=== PATIENT | female | born 1950 | race Caucasian/White ===

== ENCOUNTER 2017-04-23 12:55 | Inpatient (IN) | payer MEDICARE, OTHER ==
[2017-04-23] VITALS (8 sets, daily range): BP systolic 120–161; BP diastolic 59–78
[~2017-04-23] VITALS: Ht 157.5 cm; Wt 78.9 kg
[~2017-04-23 12:55] MED LIST: ASPI-624 PO; ATOR40TA PO; CLOP75TA PO; CTLP20T PO; LISI1TAB10 PO; LVT.112T PO; MTP100TCR PO; NITR0.4T42 SL; PNT40TEC PO
--- OUTSIDE RECORDS SUMMARY | 2017-04-23 13:00 | XMS REPORT | Continuity of Care Document ---
Author Author [facility] Organization [facility] Address Unknown Phone Unavailable Allergies There is no data. Medications There is no data. Problems There is no data. Procedures There is no data. Results There is no data. Encounters ACCT No. Visit Date/Time Discharge Status Pt. Type Provider Facility Loc./Unit Complaint [id number] 04/18/2013 22:20:00 04/20/2013 14:20:00 DIS Inpatient
[2017-04-23] MEDS ORDERED: LACTATED RINGERS 1,000 ML IV ONE (13:38)
[2017-04-23] MEDS ORDERED: ASPIRIN 81 MG CHEW (CHILDREN'S ASA) PO ONE (13:45)
[2017-04-23 13:46] LABS: BASOPHILS # (AUTO) 0.1 10^3/uL (0.0-0.1); BASOPHILS % (AUTO) 1 % (0-10); EOSINOPHILS # (AUTO) 0.2 10^3/uL (0.0-0.3); EOSINOPHILS % (AUTO) 2 % (0-10); HEMATOCRIT 23 % (35-52); LYMPHOCYTES # (AUTO) 3.7 X 10^3 (1.0-4.0); LYMPHOCYTES % (AUTO) 37 % (12-44); MEAN CORPUSCULAR HEMOGLOBIN 20 PG (25-34); MEAN CORPUSCULAR HGB CONC 28 G/DL (32-36); MEAN CORPUSCULAR VOLUME 71 FL (80-99); MEAN PLATELET VOLUME 9.6 FL (7.4-10.4); MONOCYTES % (AUTO) 10 % (0-12); NEUTROPHILS # (AUTO) 5.2 X 10^3 (1.8-7.8); NEUTROPHILS % (AUTO) 52 % (42-75); PLATELET COUNT 441 10^3/uL (130-400); RED BLOOD COUNT 3.27 10^6/uL (4.35-5.85); RED CELL DISTRIBUTION WIDTH 17.7 % (10.0-14.5); WHITE BLOOD COUNT 10.1 10^3/uL (4.3-11.0)
--- NOTE | 2017-04-23 13:46 | ED Chest Pain ---
General Chief Complaint: Chest Pain Stated Complaint: DIZZY SPELLS,HEART FLUTTERING X 3 DAYS Nursing Triage Note: PT CO OF CHEST PAIN AND DIZZINESS X3 DAYS, STATES FEELS LIKE HEART FLUTTERS Nursing Sepsis Screen: No Definite Risk Source: patient, spouse Exam Limitations: no limitations History of Present Illness Date Seen by Provider: Apr 23, 2017 Time Seen by Provider: 13:25 Initial Comments Patient presents to the ER by private conveyance with a chief complaint that the past 3 days she's had progressively worsening chest pain in her left chest radiates to her left shoulder as well as dizziness when getting up from sitting to a standing position. She feels like she is going to pass out. She denies a history of Mnire's. She does have a history of coronary artery disease one stent and had a heart catheter 3 years ago showing 15% occlusion in one vessel done by Dr. Cross in [place], [place]. She also has a stress test 3 months ago. She says her chest pain is very mild. She takes blood pressure medicine, valsartan which she did take today. She does not smoke have diabetes, however he does have hypercholesterolemia, hypothyroidism. 2 weeks ago she was diagnosed with bronchitis put on a steroid shot as well as antibiotics which she completed and she feels like it got much better she is no longer short of breath. She is still coughing with some occasional mucus production. She's had no objective fever only measuring as high as 99.5 but she has had chills. Allergies and Home Medications Allergies Coded Allergies: No Known Drug Allergies (Unverified , 04/18/13) Home Medications Aspirin 81 Mg Tablet, 81 MG PO DAILY, (Reported) Atorvastatin Calcium 40 Mg Tablet, 40 MG PO DAILY, (Reported) Citalopram Hydrobromide 20 Mg Tablet, 20 MG PO HS, (Reported) Clopidogrel Bisulfate 75 Mg Tablet, 75 MG PO DAILY, (Reported) Levothyroxine Sodium 112 Mcg Tablet, 112 MCG PO DAILY, (Reported) Nitroglycerin 0.4 Mg Tab.subl, 0.4 MG SL PRN, (Reported) Pantoprazole Sodium 40 Mg Tablet.dr, 40 MG PO DAILY, (Reported) Review of Systems Constitutional: No chills, No diaphoresis EENTM: No Blurred Vision, No Double Vision Respiratory: Cough, Denies Shortness of Air, Denies Wheezing Cardiovascular: See HPI, Chest Pain, Denies Edema, Lightheadedness, Denies Palpitations, Denies Syncope Gastrointestinal: Denies Abdominal Pain, Denies Constipated, Denies Diarrhea, Denies Nausea Genitourinary: Denies Burning, Denies Discharge Musculoskeletal: No back pain, No joint pain Skin: No pruritus, No rash Psychiatric/Neurological: Denies Headache, Denies Numbness, Denies Paresthesia Past Knvsald-Stoybs-Xhcsro Hx Patient Social History Alcohol Use: Rarely Uses Recreational Drug Use: No Smoking Status: Never a Smoker Recent Foreign Travel: No Contact w/Someone Who Travel: No Recent Infectious Disease Expo: No Immunizations Up To Date Tetanus Booster (TDap): Less than 5yrs Date of Influenza Vaccine: Nov 26, 2012 Reproductive System Hx Reproductive Disorders: No Sexually Transmitted Disease: No Endocrine Endocrine Disorders: Hypothyroidsim Physical Exam Vital Signs Vital Signs - First Documented 04/23/17 13:18 Temp 97.9 Pulse 103 Resp 18 B/P (MAP) 145/75 (98) Pulse Ox 98 Capillary Refill : Less Than 3 Seconds General Appearance: No Apparent Distress, WD/WN HEENT: PERRL/EOMI, TMs Normal, Normal ENT Inspection, Pharynx Normal Neck: Full Range of Motion, Normal Inspection, Non Tender, Supple Respiratory: Chest Non Tender, Lungs Clear, Normal Breath Sounds, No Accessory Muscle Use, No Respiratory Distress Cardiovascular: Regular Rate, Rhythm, No Edema, Normal Peripheral Pulses, Diastolic Murmur Gastrointestinal: Normal Bowel Sounds, No Organomegaly, Non Tender, Soft Rectal: Normal Exam, Normal Rectal Tone, Heme Negative Stool Genital/Rectal: Heme Negative Stool Extremity: Normal Capillary Refill, Normal Inspection, Non Tender, No Calf Tenderness, No Pedal Edema Neurologic/Psychiatric: Alert, Oriented x3, No Motor/Sensory Deficits Skin: Normal Color, Warm/Dry Progress/Results/Core Measures Results/Orders Lab Results Laboratory Tests Test 04/23/17 13:14 Range/Units White Blood Count 10.1 4.3-11.0 10^3/uL Red Blood Count 3.27 L 4.35-5.85 10^6/uL Hemoglobin 6.6 *L 11.5-16.0 G/DL Hematocrit 23 L 35-52 % Mean Corpuscular Volume 71 L 80-99 FL Mean Corpuscular Hemoglobin 20 L 25-34 PG Mean Corpuscular Hemoglobin Concent 28 L 32-36 G/DL Red Cell Distribution Width 17.7 H 10.0-14.5 % Platelet Count 441 H 130-400 10^3/uL Mean Platelet Volume 9.6 7.4-10.4 FL Neutrophils (%) (Auto) 52 42-75 % Lymphocytes (%) (Auto) 37 12-44 % Monocytes (%) (Auto) 10 0-12 % Eosinophils (%) (Auto) 2 0-10 % Basophils (%) (Auto) 1 0-10 % Neutrophils # (Auto) 5.2 1.8-7.8 X 10^3 Lymphocytes # (Auto) 3.7 1.0-4.0 X 10^3 Monocytes # (Auto) 1.0 0.0-1.0 X 10^3 Eosinophils # (Auto) 0.2 0.0-0.3 10^3/uL Basophils # (Auto) 0.1 0.0-0.1 10^3/uL Prothrombin Time 13.5 12.2-14.7 SEC INR Comment 1.0 0.8-1.4 Activated Partial Thromboplast Time 25 24-35 SEC Sodium Level 137 135-145 MMOL/L Potassium Level 4.1 3.6-5.0 MMOL/L Chloride Level 106 98-107 MMOL/L Carbon Dioxide Level 22 21-32 MMOL/L Anion Gap 9 5-14 MMOL/L Blood Urea Nitrogen 17 7-18 MG/DL Creatinine 0.92 0.60-1.30 MG/DL Estimat Glomerular Filtration Rate > 60 BUN/Creatinine Ratio 18 Glucose Level 102 70-105 MG/DL Calcium Level 9.0 8.5-10.1 MG/DL Magnesium Level 1.7 L 1.8-2.4 MG/DL Total Bilirubin 0.4 0.1-1.0 MG/DL Aspartate Amino Transf (AST/SGOT) 16 5-34 U/L Alanine Aminotransferase (ALT/SGPT) 12 0-55 U/L Alkaline Phosphatase 65 40-136 U/L Myoglobin 54.0 10.0-92.0 NG/ML Troponin I < 0.30 <0.30 NG/ML B-Type Natriuretic Peptide < 10.0 <100.0 PG/ML Total Protein 7.9 6.4-8.2 GM/DL Albumin 4.0 3.2-4.5 GM/DL My Orders Orders - RAVINDER OSMAN Saline Lock/Iv-Start (04/23/17 13:38) Lactated Ringers (Lr 1000 Ml Iv Solution (04/23/17 13:38) Cbc With Automated Diff (04/23/17 13:38) Magnesium (04/23/17 13:38) Ekg Tracing (04/23/17 13:38) Cardiac Profile 1 (04/23/17 13:38) Comprehensive Metabolic Panel (04/23/17 13:38) Myoglobin Serum (04/23/17 13:38) Protime With Inr (04/23/17 13:38) Partial Thromboplastin Time (04/23/17 13:38) O2 (04/23/17 13:38) Monitor-Rhythm Ecg Trace Only (04/23/17 13:38) Lipid Panel (04/24/17 06:00) Aspirin Chewable Tablet (Baby Aspirin Ch (04/23/17 13:45) Saline Lock/Iv-Start (04/23/17 13:38) BNP (04/23/17 13:38) Chest Pa/Lat (2 View) (04/23/17 13:38) Orthostatic Vital Signs (Adult (04/23/17 13:40) Vital Signs: Special (04/23/17 14:47) Consent-Obtain Consent For (04/23/17 14:47) Monitor S/S Transfusion Reacti (04/23/17 14:47) Ns Iv 500 Ml (Sodium Chloride 0.9%) (04/23/17 14:47) Type And Screen (04/23/17 14:47) Red Cells Leukocytes Reduced (04/23/17 14:47) Medications Given in ED Current Medications Medications Dose Ordered Sig/Sarah Route Start Time Stop Time Status Last Admin Dose Admin Aspirin 324 mg ONCE ONCE PO 04/23/17 13:45 04/23/17 13:46 DC 04/23/17 14:04 324 MG Lactated Ringer's 1,000 ml @ 0 mls/hr Q0M ONCE IV 04/23/17 13:38 04/23/17 13:41 DC 04/23/17 14:04 1,000 MLS/HR Vital Signs/I&O Vital Sign - Last 12Hours 04/23/17 04/23/17 04/23/17 13:18 14:02 14:03 Temp 97.9 Pulse 103 87 87 95 96 Resp 18 B/P (MAP) 145/75 (98) 122/67 (85) 122/67 (85) 124/78 (93) 125/69 (87) Pulse Ox 98 Blood Pressure Mean: 98 Progress Note : Time: 13:45 Progress Note Chest pain secondary to recent bronchitis/pneumonia versus cardiogenic. We'll give her some aspirin, nitroglycerin blood pressure systolic 116 and her pain is very mild. Initial EKG does not show changes. Orthostatic vitals lying sitting standing do not change and the heart rate does not change more than 10 bpm. ECG Initial ECG Impression Date: Apr 23, 2017 Initial ECG Impression Time: 13:09 Initial ECG Rate: 93 Initial ECG Rhythm: Normal Sinus Initial ECG Intervals: Normal Initial ECG Impression: Normal Initial ECG Comparisson: No Previous ECG Available Comment No ST segment elevation or depression. Diagnostic Imaging Diagonstic Imaging: Xray Plain Films/CT/US/NM/MRI: chest (2v) Comments NAME: TYRELL VENEGAS [facility] REC#: [id number] PHYSICIAN: RAVINDER OSMAN MD CC: ALIZE BOLIVAR MD; RAVINDER OSMAN Page 1 of 1 RADIOLOGY REPORT [place] [place], [place] CC: ALIZE BOLIVAR MD; RAVINDER OSMAN Page 1 of 1 RADIOLOGY REPORT NAME: RUBITYRELL L [facility] REC#: [id number] PT STATUS: REG ER : 1950 PHYSICIAN: RAVINDER OSMAN MD ADMIT DATE: 04/23/17/ER Signed Date of Exam: 04/23/17 CHEST PA/LAT (2 VIEW) INDICATION: Dizziness and chest heaviness. Time of exam 2:31 PM Correlation is made to prior study from 04/18/2013. The heart size is normal. Moderate sized hiatal hernia is noted. No parenchymal infiltrates are seen. No effusion or pneumothorax is identified. IMPRESSION: Hiatal hernia. No acute cardiopulmonary process is detected. Dictated by: Dictated on workstation # [id number] Dict: 04/23/17 1415 Trans: 04/23/17 1419 Interpreted by: ALIZE BOLIVAR MD Electronically signed by: ALIZE BOLIVAR MD 04/23/17 1419 Reviewed: Reviewed by Me Departure Communication (Admissions) Time/Spoke to Admitting Phy: 15:[address] Gasca; discussed case lab imaging findings and she would prefer to have this one unit for now. Discussed the negative fecal occult blood test. Impression Impression: Primary Impression: Chest pain Disposition: ADMITTED INPATIENT Condition: Stable Admissions Decision to Admit Reason: Admit from ER (General) Decision to Admit/Date: Apr 23, 2017 Time/Decision to Admit Time: 13:46 Departure-Patient Inst. Referrals: ANAID MCNULTY MD (PCP/Family) Primary Care Physician Copy Copies To 1: ANAID MCNULTY MD, TITUS J Apr 23, 2017 13:46
[2017-04-23 13:47] LABS: HEMOGLOBIN 6.6 G/DL (11.5-16.0)
[2017-04-23 13:50] LABS: PROTHROMBIN TIME PATIENT 13.5 SEC (12.2-14.7)
[2017-04-23 14:05] LABS: ALANINE AMINOTRANSFERASE 12 U/L (0-55); ALKALINE PHOSPHATASE 65 U/L (40-136); BILIRUBIN,TOTAL 0.4 MG/DL (0.1-1.0); BUN/CREATININE RATIO 18; CARBON DIOXIDE 22 MMOL/L (21-32); CHLORIDE 106 MMOL/L (98-107); CREATININE SERUM 0.92 MG/DL (0.60-1.30); GFR ESTIMATED > 60; GLUCOSE 102 MG/DL (70-105); MAGNESIUM 1.7 MG/DL (1.8-2.4); POTASSIUM 4.1 MMOL/L (3.6-5.0); SODIUM 137 MMOL/L (135-145); TOTAL PROTEIN 7.9 GM/DL (6.4-8.2)
--- NOTE | 2017-04-23 14:19 | Diagnostic Imaging Report ---
INDICATION: Dizziness and chest heaviness. Time of exam 2:31 PM Correlation is made to prior study from 04/18/2013. The heart size is normal. Moderate sized hiatal hernia is noted. No parenchymal infiltrates are seen. No effusion or pneumothorax is identified. IMPRESSION: Hiatal hernia. No acute cardiopulmonary process is detected. Dictated by: Dictated on workstation # [id number]
[2017-04-23] MEDS ORDERED: NS IV 500 ML 500 ML IV SCH (14:47)
--- OUTSIDE RECORDS SUMMARY | 2017-04-23 15:34 | XMS REPORT | Continuity of Care Document ---
Author Author [facility] Organization [facility] Address Unknown Phone Unavailable Allergies There is no data. Medications There is no data. Problems There is no data. Procedures There is no data. Results Test Result Range Complete blood count (CBC) with automated white blood cell (WBC) differential - 04/23/17 13:14 Blood leukocytes automated count (number/volume) 10.1 10*3/uL 4.3-11.0 Blood erythrocytes automated count (number/volume) 3.27 10*6/uL 4.35-5.85 Venous blood hemoglobin measurement (mass/volume) 6.6 g/dL 11.5-16.0 Blood hematocrit (volume fraction) 23 % 35-52 Automated erythrocyte mean corpuscular volume 71 [foz_us] 80-99 Automated erythrocyte mean corpuscular hemoglobin (mass per erythrocyte) 20 pg 25-34 Automated erythrocyte mean corpuscular hemoglobin concentration measurement ( mass/volume) 28 g/dL 32-36 Automated erythrocyte distribution width ratio 17.7 % 10.0-14.5 Automated blood platelet count (count/volume) 441 10*3/uL 130-400 Automated blood platelet mean volume measurement 9.6 [foz_us] 7.4-10.4 Automated blood neutrophils/100 leukocytes 52 % 42-75 Automated blood lymphocytes/100 leukocytes 37 % 12-44 Blood monocytes/100 leukocytes 10 % 0-12 Automated blood eosinophils/100 leukocytes 2 % 0-10 Automated blood basophils/100 leukocytes 1 % 0-10 Blood neutrophils automated count (number/volume) 5.2 10*3 1.8-7.8 Blood lymphocytes automated count (number/volume) 3.7 10*3 1.0-4.0 Blood monocytes automated count (number/volume) 1.0 10*3 0.0-1.0 Automated eosinophil count 0.2 10*3/uL 0.0-0.3 Automated blood basophil count (count/volume) 0.1 10*3/uL 0.0-0.1 PT panel in platelet poor plasma by coagulation assay - 04/23/17 13:14 Prothrombin time (PT) in platelet poor plasma by coagulation assay 13.5 s 12.2-14.7 INR in platelet poor plasma or blood by coagulation assay 1.0 0.8-1.4 Activated partial thromboplastin time (aPTT) in platelet poor plasma bycoagulation assay - 04/23/17 13:14 Activated partial thromboplastin time (aPTT) in platelet poor plasma bycoagulation assay 25 s 24-35 Comprehensive metabolic panel - 04/23/17 13:14 Serum or plasma sodium measurement (moles/volume) 137 mmol/L 135-145 Serum or plasma potassium measurement (moles/volume) 4.1 mmol/L 3.6-5.0 Serum or plasma chloride measurement (moles/volume) 106 mmol/L 98-107 Carbon dioxide 22 mmol/L 21-32 Serum or plasma anion gap determination (moles/volume) 9 mmol/L 5-14 Serum or plasma urea nitrogen measurement (mass/volume) 17 mg/dL 7-18 Serum or plasma creatinine measurement (mass/volume) 0.92 mg/dL 0.60-1.30 Serum or plasma urea nitrogen/creatinine mass ratio 18 NRG Serum or plasma creatinine measurement with calculation of estimated glomerular filtration rate > NRG Serum or plasma glucose measurement (mass/volume) 102 mg/dL 70-105 Serum or plasma calcium measurement (mass/volume) 9.0 mg/dL 8.5-10.1 Serum or plasma total bilirubin measurement (mass/volume) 0.4 mg/dL 0.1-1.0 Serum or plasma alkaline phosphatase measurement (enzymatic activity/volume) 65 U/L 40-136 Serum or plasma aspartate aminotransferase measurement (enzymatic activity/ volume) 16 U/L 5-34 Serum or plasma alanine aminotransferase measurement (enzymatic activity/volume ) 12 U/L 0-55 Serum or plasma protein measurement (mass/volume) 7.9 g/dL 6.4-8.2 Serum or plasma albumin measurement (mass/volume) 4.0 g/dL 3.2-4.5 Magnesium - 04/23/17 13:14 Magnesium 1.7 mg/dL 1.8-2.4 Serum or plasma troponin i.cardiac measurement (mass/volume) - 04/23/17 13:14 Serum or plasma troponin i.cardiac measurement (mass/volume) < ng/ mL <0.30 Myoglobin, serum - 04/23/17 13:14 Myoglobin, serum 54.0 ng/mL 10.0-92.0 Serum or plasma lithium measurement (moles/volume) - 04/23/17 13:14 BNP level < pg/mL <100.0 Encounters ACCT No. Visit Date/Time Discharge Status Pt. Type Provider Facility Loc./Unit Complaint [id number] 04/18/2013 22:20:00 04/20/2013 14:20:00 DIS Inpatient [id number] 04/23/2017 13:48:00 Document Registration
[2017-04-23] MEDS ORDERED: ANTACID SUSP 30 ML UDC (MYLANTA) PO PRN (16:15)
[2017-04-23] MEDS ORDERED: ONDANSETRON 4 MG/2 ML (SDV) Z0FRAN IV PRN (16:15)
[2017-04-23] MEDS ORDERED: ACETAMINOPHEN 325 MG TABLET/CAPLET (TYLENOL) PO PRN (16:15)
[2017-04-23] MEDS: NS IV 1000 ML 1,000 ML IV SCH (16:15)
[2017-04-23] MEDS ORDERED: MELATONIN 3 MG TABLET PO PRN (16:15)
[2017-04-23] MEDS ORDERED: MILK OF MAGNESIA 400 MG/5 ML 30 ML UDC PO PRN (16:15)
--- NOTE | 2017-04-23 16:18 | History & Physical-Hospitalist ---
HPI History of Present Illness: HPI/Chief Complaint Pt is a 66yoCF with a PMH of CAD s/p stenting and HTN who presented to the ER with CC of chest pain and SANCHEZ. She reports her symptoms have been going on for 2 months. She has been getting progressively more weak and SOB. 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 This continued to worsen today prompting her to seek evaluation in the ER where she was found to be anemic with a hemoglobin of 6.6. She has a history of anemia and has been worked up in the past with colonoscopy and EGD but those are years ago. She has a history of a hysterectomy due to DUB a few years ago. She denies any blood stools or vomit, hematuria, and vaginal bleeding. She denies chest pain currently. Source: patient, family Exam Limitations: no limitations Date Seen 04/23/17 Time Seen by Provider: 15:45 Attending Physician Sobia Gasca MD PCP Chavo Browning MD Referring Physician Date of Admission Apr 23, 2017 at 15:31 Home Medications & Allergies Home Medications Reviewed patient Home Medication Reconciliation Form Allergies Allergies Coded Allergies No Known Drug Allergies (Unverified04/18/13) Past Cjcallz-Ycsnrl-Cammsk Hx Patient Social History Marrital Status: Employed/Student: part-time employed Alcohol Use: Rarely Uses Recreational Drug Use: No Smoking Status: Never a Smoker Recent Foreign Travel: No Contact w/other who traveled: No Recent Hopitalizations: No Recent Infectious Disease Expo: No Immunizations Up To Date Tetanus Booster (TDap): Less than 5yrs Date of Influenza Vaccine: Nov 26, 2012 Surgeries Yes (BACK, HEART CATHX2-ANGIOPLASTY&STENT) Respiratory No Cardiovascular Yes (STENTS/ANGIOPLASTYX2) Coronary Artery Disease, Hypertension Neurological No Reproductive System Hx Reproductive Disorders: No Sexually Transmitted Disease: No Gastrointestinal No Musculoskeletal No Endocrine History of Endocrine Disorders: Yes Endocrine Disorders: Hypothyroidsim Cancer No Psychosocial History of Psychiatric Problem: No Integumentary History of Skin or Integumenta: No Blood Transfusions Hx of Blood Transfusion yes Adverse Reaction to a Blood Tr: No Family Medical History Significant Family History: Heart Disease, CAD Over 55 Years Old Review of Systems Constitutional: No chills, No fever, weakness EENTM: No blurred vision, No double vision, No nose congestion, No throat pain Respiratory: No cough, dyspnea on exertion, short of breath Cardiovascular: chest pain, No edema, No palpitations, No syncope Gastrointestinal: No abdominal pain, No constipation, No diarrhea, No nausea, No vomiting Genitourinary: No dysuria, No frequency Musculoskeletal: No joint pain, No muscle pain Skin: No lesions, No rash Psychiatric/Neurological: Denies Anxiety, Denies Depressed, Denies Headache, Denies Numbness, Denies Tingling Physical Exam Physical Exam Vital Signs Vital Signs - First Documented 04/23/17 13:18 Temp 97.9 Pulse 103 Resp 18 B/P (MAP) 145/75 (98) Pulse Ox 98 O2 Delivery Room Air Capillary Refill : Less Than 3 Seconds General Appearance: No Apparent Distress, WD/WN HEENT: PERRL/EOMI, Moist Mucous Membranes Neck: Non Tender, Supple Respiratory: Lungs Clear, No Respiratory Distress Cardiovascular: Regular Rate, Rhythm, No Murmur Gastrointestinal: Normal Bowel Sounds, Non Tender, Soft Extremity: Normal Capillary Refill, No Calf Tenderness Neurologic/Psychiatric: Alert, Oriented x3, Normal Mood/Affect Skin: Warm/Dry, No Mottled, Pallor Results Results/Procedures Lab Laboratory Tests 04/23/17 13:14 Assessment/Plan Admission Diagnosis Symptomatic anemia Admission Status: Inpatient Order (span 2 midnights) Reason for Inpatient Admission: symptomatic anemia of unknown etiology with chest pain Diagnosis/Problems Diagnosis/Problems (1) Symptomatic anemia Status: Acute Assessment & Plan: T&S- will likely need T&C if needs any further transfusions Transfuse 1 unit only, repeat in H&H in AM only No obvious source of anemia Will consult Heme, appreciate recs Will consulte Surgery, appreciate recs Iron studies ordered Will likely need Infed during admission (2) Essential (primary) hypertension Status: Chronic Assessment & Plan: Well controlled currently (3) CAD (coronary artery disease) Status: Chronic Assessment & Plan: Having chest pain likely due to anemia Cardiology consulted appreciate recs ASA given in ER Monitor on tele Qualifiers: Qualified Codes: I25.10 - Atherosclerotic heart disease of [place] coronary artery without angina pectoris (4) Hypomagnesemia Assessment & Plan: Will replace (5) Prophylactic measure Assessment & Plan: SCDs due to anemia CLD for prep for EGD/colonoscopy NS at 100ml/hr Clinical Quality Measures AMI/AHF: ASA po Prior to arrival: SOBIA Camara MD Apr 23, 2017 16:18
[2017-04-23] MEDS ORDERED: MAGNESIUM CITRATE 300 ML BTL PO NR (16:45)
[2017-04-23] MEDS ORDERED: INFLUENZA TRIvalent 2017-2018 0.5 ML/45 MCG SYR IM ONE (17:15)
--- NOTE | 2017-04-23 17:38 | Consultation-Cardiology ---
HPI-Cardiology Cardiology Consultation: Date of Consultation 04/23/17 Time Seen by Provider: 17:20 Date of Admission Attending Physician Gilda Gasca MD Admitting Physician Chavo Browning MD Consulting Physician KARISSA GRULLON MD, MA, FACP, FACC, FSCAI, CCDS HPI: Chief Complaint: Shortness of breath HPI 66 yo woman with 2 month of slowly progressive shortness of breath. Also mild L parasternal discomfort, mild, pressure-like, non-radiating, not associated with other symptoms, lasting several hours and recurring several times a week, with onset about 2 months ago. No palp or syncope or shortness of breath or ankle swelling or syncope Review of Systems-Cardiology Review of Systems Constitutional: malaise, tiredness Eyes: No vision change Ears/Nose/Throat: No ear discharge, No nasal drainage, No recent hearing loss Respiratory: As described under HPI Cardiovascular: As described under HPI Gastrointestinal: No constipation, No diarrhea, No vomiting Genitourinary: No dysuria, No hematuria, No urine frequency changes Musculoskeletal: back pain (chronic) Skin: No rash on exposed areas, No ulcerations on exposed areas Psychiatric/Neurological: No depression, No seizure, No focal weakness, No syncope Hematologic: bleeding abnormalities VDH-Twchgw-Evvglh Hx Patient Social History Marrital Status: Employed/Student: part-time employed Alcohol Use: Rarely Uses Recreational Drug Use: No Smoking Status: Never a Smoker Recent Foreign Travel: No Recent Infectious Disease Expo: No Hospitalization with Isolation: Denies Physical Abuse Screen: No Sexual Abuse: No Immunizations Up To Date Tetanus Booster (TDap): Less than 5yrs Date of Influenza Vaccine: Nov 26, 2012 Past Medical History PMH As described under Assessment. Family Medical History Family Medical History: No fam h/o or early CAD or SCD Family History: Allergies and Home Medications Allergies Coded Allergies: No Known Drug Allergies (Unverified , 04/23/17) Home Medications Aspirin 81 Mg Tablet, 81 MG PO DAILY, (Reported) Atorvastatin Calcium 40 Mg Tablet, 40 MG PO DAILY, (Reported) Citalopram Hydrobromide 20 Mg Tablet, 20 MG PO HS, (Reported) Levothyroxine Sodium 112 Mcg Tablet, 112 MCG PO DAILY, (Reported) Nitroglycerin 0.4 Mg Tab.subl, 0.4 MG SL PRN, (Reported) Pantoprazole Sodium 40 Mg Tablet.dr, 40 MG PO DAILY, (Reported) Physical Exam-Cardiology Physical Exam Vital Signs/I&O Vital Sign - Last 12Hours 04/23/17 04/23/17 04/23/17 04/23/17 13:18 13:18 14:02 14:03 Temp 97.9 Pulse 103 87 87 95 96 Resp 18 B/P (MAP) 145/75 (98) 122/67 (85) 122/67 (85) 124/78 (93) 125/69 (87) Pulse Ox 98 O2 Delivery Room Air 04/23/17 04/23/17 04/23/17 04/23/17 15:33 15:48 16:59 17:20 Temp 97.2 97.2 97.3 Pulse 88 95 95 81 Resp 20 20 20 20 B/P (MAP) 140/78 161/72 (101) 161/72 122/59 Pulse Ox 99 100 100 O2 Delivery Room Air Room Air Capillary Refill : Less Than 3 Seconds Constitutional: AAO x 3, well-developed, well-nourished HEENT: EOMI, hearing is well preserved, No xanthelasmas are seen Neck: No carotid bruit, carotid pulses are 2 + bilaterally Respiratory: lungs clear to percussion, lungs clear to auscultation Cardiovascular: regular rate-rhythm, S1 and S2, systolic murmur (faint URBAN at card base) Gastrointestinal: No tender, No soft, No guarding, No rebound, audible bowel sounds Extremities: No clubbing, No cyanosis, No significant edema Neurologic/Psychiatric: oriented x 3, grossly intact, power is 5/5 both on sides Skin: No rash on exposed areas, No ulcerations on exposed areas Data Review Labs Laboratory Tests 04/23/17 13:14: White Blood Count 10.1, Red Blood Count 3.27L, Hemoglobin 6.6*L, Hematocrit 23L , Mean Corpuscular Volume 71L, Mean Corpuscular Hemoglobin 20L, Mean Corpuscular Hemoglobin Concent 28L, Red Cell Distribution Width 17.7H, Platelet Count 441H, Mean Platelet Volume 9.6, Neutrophils (%) (Auto) 52, Lymphocytes (% ) (Auto) 37, Monocytes (%) (Auto) 10, Eosinophils (%) (Auto) 2, Basophils (%) ( Auto) 1, Neutrophils # (Auto) 5.2, Lymphocytes # (Auto) 3.7, Monocytes # (Auto) 1.0, Eosinophils # (Auto) 0.2, Basophils # (Auto) 0.1, Prothrombin Time 13.5, INR Comment 1.0, Activated Partial Thromboplast Time 25, Sodium Level 137, Potassium Level 4.1, Chloride Level 106, Carbon Dioxide Level 22, Anion Gap 9, Blood Urea Nitrogen 17, Creatinine 0.92, Estimat Glomerular Filtration Rate > 60 , BUN/Creatinine Ratio 18, Glucose Level 102, Calcium Level 9.0, Magnesium Level 1.7L, Total Bilirubin 0.4, Aspartate Amino Transf (AST/SGOT) 16, Alanine Aminotransferase (ALT/SGPT) 12, Alkaline Phosphatase 65, Myoglobin 54.0, Troponin I < 0.30, B-Type Natriuretic Peptide < 10.0, Total Protein 7.9, Albumin 4.0 Laboratory Tests 04/23/17 13:14 ECG Impression ECG Comment ECG on 04/23/17: NSR, WNL A/P-Cardiology Assessment/Admission Diagnosis Profound, symptomatic anemia of undetermined etiology Shortness of breath likely related to marked anemia Epigastric/chest discomfort w/o evidence of ACS, thus far Hospitalization with medication-related hypotension and hypotension-related ARF in 2013 H/o LCX stent (Promus 2.5x8) and OM stent (Promus 2.5x12) by Dr Rajan in [place], [place] in 2012. Last card cath by Dr Kowalski in [place], [place] in 2014. Pt states last cath did not show any significant obstructive CAD Admission Status: Inpatient Order (span 2 midnights) Reason for Inpatient Admission: symptomatic anemia of unknown etiology with chest pain Discussion and Recomendations * Blood transfusion to correct anemia is likely to improve symptoms * Hold antiplatelet agents since GI bleed is a concern * Resume antiplatelet agents when bleeding excluded/treated * Monitor labs Clinical Quality Measures AMI/AHF: ASA po Prior to arrival: No DVT/VTE Risk/Contraindication: Risk Factor Score Per Nursin RFS Level Per Nursing on Admit: 3=High KARISSA GRULLON MD FACP FAC CCDS Apr 23, 2017 17:38
[2017-04-23] MEDS ORDERED: MAGNESIUM 1 GM/100 ML IVPB 200 ML IV ONE (20:13)
[2017-04-23] MEDS: MAGNESIUM 1 GM/100 ML IVPB 100 ML IV SCH ×2 (20:36→22:39)
[2017-04-24] VITALS (9 sets, daily range): BP systolic 91–134; BP diastolic 51–68
[2017-04-24] MEDS: NS IV 1000 ML 1,000 ML IV SCH ×3 (03:00→22:16)
[2017-04-24 06:52] LABS: BASOPHILS % (AUTO) 1 % (0-10); EOSINOPHILS # (AUTO) 0.3 10^3/uL (0.0-0.3); EOSINOPHILS % (AUTO) 4 % (0-10); HEMATOCRIT 24 % (35-52); LYMPHOCYTES # (AUTO) 2.6 X 10^3 (1.0-4.0); LYMPHOCYTES % (AUTO) 37 % (12-44); MEAN CORPUSCULAR HEMOGLOBIN 21 PG (25-34); MEAN CORPUSCULAR HGB CONC 29 G/DL (32-36); MEAN CORPUSCULAR VOLUME 72 FL (80-99); MEAN PLATELET VOLUME 9.3 FL (7.4-10.4); MONOCYTES # (AUTO) 0.8 X 10^3 (0.0-1.0); MONOCYTES % (AUTO) 11 % (0-12); NEUTROPHILS # (AUTO) 3.3 X 10^3 (1.8-7.8); NEUTROPHILS % (AUTO) 46 % (42-75); PLATELET COUNT 364 10^3/uL (130-400); RED BLOOD COUNT 3.26 10^6/uL (4.35-5.85); RED CELL DISTRIBUTION WIDTH 17.9 % (10.0-14.5); WHITE BLOOD COUNT 7.1 10^3/uL (4.3-11.0)
[2017-04-24 06:53] LABS: HEMOGLOBIN 6.8 G/DL (11.5-16.0)
[2017-04-24 07:17] LABS: BUN/CREATININE RATIO 18; CALCIUM 8.2 MG/DL (8.5-10.1); CARBON DIOXIDE 25 MMOL/L (21-32); CHLORIDE 110 MMOL/L (98-107); CHOLESTEROL 139 MG/DL (< 200); CREATININE SERUM 0.73 MG/DL (0.60-1.30); GFR ESTIMATED > 60; GLUCOSE 84 MG/DL (70-105); HDL CHOLESTEROL 40 MG/DL (40-60); SODIUM 141 MMOL/L (135-145); TRIGLYCERIDES 90 MG/DL (<150); VLDL CHOLESTEROL 18 MG/DL (5-40)
--- NOTE | 2017-04-24 08:56 | Progress Note-Cardiology ---
Cardiology SOAP Progress Note Subjective: Sitting up in bed. Continues to c/o some chest discomfort, but feels it is better than before. C/O continued SANCHEZ. No c/o palpitations, syncope or near syncope. Objective: I&O/Vital Signs Vital Sign - Last 12Hours 04/24/17 04/24/17 04/24/17 04/24/17 08:00 12:00 13:34 13:50 Temp 96.7 97.8 97.5 97.3 Pulse 81 93 88 82 Resp 20 16 18 18 B/P (MAP) 134/62 (86) 124/68 (86) 127/61 123/58 Pulse Ox 98 100 98 96 O2 Delivery Room Air Room Air Room Air 04/24/17 04/24/17 15:50 16:25 Temp 97.7 98.1 Pulse 80 84 Resp 16 B/P (MAP) 127/60 (82) 120/66 Pulse Ox 98 O2 Delivery Room Air Intake and Output 04/24/17 00:00 Intake Total 1600 ml Output Total 550 ml Balance 1050 ml Weight (Pounds): 174 Weight (Ounces): 0.0 Weight (Calculated Kilograms): 78.572172 Constitutional: AAO x 3, well-developed, well-nourished Respiratory: lungs clear to percussion, lungs clear to auscultation Cardiovascular: regular rate-rhythm, S1 and S2, systolic murmur (faint URBAN at card base) Gastrointestional: No tender, No soft, No guarding, No rebound, audible bowel sounds Extremities: No clubbing, No cyanosis, No significant edema Neurologic/Psychiatric: oriented x 3, grossly intact, power is 5/5 both on sides Skin: No rash on exposed areas, No ulcerations on exposed areas Results/Procedures: Labs Laboratory Tests 04/24/17 05:55: White Blood Count 7.1, Red Blood Count 3.26L, Hemoglobin 6.8*L, Hematocrit 24L, Mean Corpuscular Volume 72L, Mean Corpuscular Hemoglobin 21L, Mean Corpuscular Hemoglobin Concent 29L, Red Cell Distribution Width 17.9H, Platelet Count 364, Mean Platelet Volume 9.3, Neutrophils (%) (Auto) 46, Lymphocytes (%) (Auto) 37, Monocytes (%) (Auto) 11, Eosinophils (%) (Auto) 4, Basophils (%) (Auto) 1, Neutrophils # (Auto) 3.3, Lymphocytes # (Auto) 2.6, Monocytes # (Auto) 0.8, Eosinophils # (Auto) 0.3, Basophils # (Auto) 0.0, Sodium Level 141, Potassium Level 4.0, Chloride Level 110H, Carbon Dioxide Level 25, Anion Gap 6, Blood Urea Nitrogen 13, Creatinine 0.73, Estimat Glomerular Filtration Rate > 60, BUN/ Creatinine Ratio 18, Glucose Level 84, Calcium Level 8.2L, Triglycerides Level 90, Cholesterol Level 139, LDL Cholesterol Direct 83, VLDL Cholesterol 18, HDL Cholesterol 40 04/24/17 09:01: Stool Occult Blood Immunoassay NEGATIVE 04/24/17 17:22: Hemoglobin 8.8#L, Hematocrit 29L A/P: Assessment: Profound, symptomatic anemia of undetermined etiology Shortness of breath likely related to marked anemia Epigastric/chest discomfort w/o evidence of ACS Hospitalization with medication-related hypotension and hypotension-related ARF in 2013 H/o LCX stent (Promus 2.5x8) and OM stent (Promus 2.5x12) by Dr Rajan in [place], [place] in 2012. Last card cath by Dr Kowalski in [place], [place] in 2014. Pt states last cath did not show any significant obstructive CAD Reports h/o hiatal hernia Reports h/o anemia requiring transfusions in the past Plan: * Blood transfusion to correct anemia is likely to improve symptoms * Hold antiplatelet agents since GI bleed is a concern * Resume antiplatelet agents when bleeding excluded/treated * Monitor labs Physician Assessment Physician Assessment No cp (other than chronic L-sided chest discomfort) or palp or syncope. Improvement of shortness of breath today Lungs: fair to good bilat air entry Cor: reg Ext: no c/c/e A&R * As documented in our note above that I updated (italics) at the time of this writing * Continue current card regimen * Monitor labs Clinical Quality Measures AMI/AHF: ASA po Prior to arrival: AMEYA Hinds [facility] Apr 24, 2017 08:56 KARISSA GRULLON MD [facility] CCDS Apr 24, 2017 17:36
[2017-04-24] MEDS ORDERED: FAMO20TA3 PO (09:08)
[2017-04-24] MEDS ORDERED: VALS160T28 PO (09:08)
[2017-04-24] MEDS ORDERED: NAPR220C11 PO (09:09)
[2017-04-24] MEDS ORDERED: ACET325T38 PO (09:10)
[2017-04-24] MEDS ORDERED: MULT-1029 PO (09:10)
[2017-04-24] MEDS ORDERED: MAGNESIUM CITRATE 300 ML BTL PO NR ×2 (09:45→16:00)
[2017-04-24] MEDS ORDERED: NITROGLYCERIN 0.4 MG SL TABS BTL 25'S SL SCH (09:45)
[2017-04-24] MEDS: PANTOPRAZOLE 40 MG (PROTONIX) TAB PO SCH (10:14)
[2017-04-24] MEDS: VALSARTAN 160 MG (DIOVAN) TABLET PO SCH (10:14)
[2017-04-24] MEDS: ASPIRIN 81 MG CHEW (CHILDREN'S ASA) PO SCH (10:14)
[2017-04-24] MEDS: FAMOTIDINE 20 MG (PEPCID) TABLET PO SCH (10:15)
[2017-04-24] MEDS: LEVOTHYROXINE 112 MCG (LEVOTHROID) TAB PO SCH (10:16)
--- NOTE | 2017-04-24 11:22 | Consultation ---
History of Present Illness History of Present Illness Patient Consulted On(ted/time) 04/24/17 11:18 Date Seen by Provider: Apr 24, 2017 Time Seen by Provider: 10:35 Reason for Visit: Pre-sternal discomfort and shortness of breath History of Present Illness 5 days history of substernal discomfort and fatigue resulting in ER visit. Evaluation is confirmed severe iron deficiency anemia with a hemoglobin of 6.6. She denies any obvious symptoms of GI blood loss. Her sister was found have multiple polyps Allergies and Home Medications Allergies Coded Allergies: No Known Drug Allergies (Unverified , 04/23/17) Home Medications Acetaminophen 325 Mg Tablet, 325 MG PO Q6H PRN for PAIN-MILD, (Reported) Aspirin 81 Mg Tablet, 81 MG PO DAILY, (Reported) Atorvastatin Calcium 40 Mg Tablet, 40 MG PO DAILY, (Reported) Famotidine 20 Mg Tablet, 40 MG PO DAILY, (Reported) Levothyroxine Sodium 112 Mcg Tablet, 112 MCG PO DAILY, (Reported) Multivit-Min/FA/Lycopene/Lut 1 Each Tablet, 1 EACH PO DAILY, (Reported) Naproxen Sodium 220 Mg Capsule, 220 MG PO PRN PRN for PAIN-BREAKTHROUGH, ( Reported) Nitroglycerin 0.4 Mg Tab.subl, 0.4 MG SL PRN, (Reported) Pantoprazole Sodium 40 Mg Tablet.dr, 40 MG PO DAILY, (Reported) Valsartan 160 Mg Tablet, 160 MG PO DAILY, (Reported) Past Sjvuosh-Rmfekz-Xrahed Hx Patient Social History Alcohol Use: Rarely Uses Number of Drinks Today: 0 Recreational Drug Use: No Smoking Status: Never a Smoker Recent Foreign Travel: No Contact w/Someone Who Travel: No Recent Infectious Disease Expo: No Recent Hopitalizations: No Physical Abuse: No Sexual Abuse: No Immunizations Up To Date Tetanus Booster (TDap): Less than 5yrs Date of Influenza Vaccine: Nov 26, 2012 Seasonal Allergies Seasonal Allergies: No Surgeries History of Surgeries: Yes (BACK, HEART CATHX2-ANGIOPLASTY&STENT) Surgeries: Hysterectomy Respiratory History of Respiratory Disorde: No Cardiovascular History of Cardiac Disorders: Yes (STENTS/ANGIOPLASTYX2) Cardiac Disorders: Coronary Artery Disease, Hypertension Neurological History of Neurological Disord: No Reproductive System Hx Reproductive Disorders: No Sexually Transmitted Disease: No Genitourinary History of Genitourinary Disor: No Gastrointestinal History of Gastrointestinal Di: No Musculoskeletal History of Musculoskeletal Dis: No Endocrine History of Endocrine Disorders: Yes Endocrine Disorders: Hypothyroidsim Cancer History of Cancer: No Psychosocial History of Psychiatric Problem: No Suicide Risk Score: 0 Integumentary History of Skin or Integumenta: No Blood Transfusions History of Blood Disorders: No Adverse Reaction to a Blood Tr: No Reviewed Nursing Assessment Reviewed/Agree w Nursing PMH: Yes Family Medical History Significant Family History: Heart Disease, CAD Over 55 Years Old Family Medial History: Review of Systems-General Constitutional: malaise, weakness EENTM: no symptoms reported Respiratory: short of breath Cardiovascular: see HPI Gastrointestinal: no symptoms reported Genitourinary: no symptoms reported Musculoskeletal: no symptoms reported Skin: no symptoms reported Psychiatric/Neurological: No Symptoms Reported Physical Exam-General Problems Physical Exam Vital Signs Vital Signs - First Documented 04/23/17 13:18 Temp 97.9 Pulse 103 Resp 18 B/P (MAP) 145/75 (98) Pulse Ox 98 O2 Delivery Room Air Capillary Refill : Less Than 3 SecondsLess Than 3 Seconds General Appearance: no apparent distress Neck: supple Respiratory: lungs clear Cardiovascular: normal peripheral pulses, regular rate, rhythm Gastrointestinal: non tender, soft, other Rectal: deferred Back: normal inspection Extremities: non-tender Neurologic/Psychiatric: alert, oriented x 3 Skin: pallor Comments lower midline scar without any incisional hernia Assessment/Plan Assessment/Plan Admission Diagnosis/Plan lady with severe iron deficiency anemia. Transfusion expected. Family history of polyps. History of coronary artery disease requiring stent placement. Reasonable to perform upper and lower endoscopy. Scheduled for tomorrow. Clinical Quality Measures AMI/AHF: ASA po Prior to arrival: No DVT/VTE Risk/Contraindication: Risk Factor Score Per Nursin RFS Level Per Nursing on Admit: 3=High VENKAT COPELAND MD Apr 24, 2017 11:22 am
--- NOTE | 2017-04-24 11:22 | Conscious Sedation/ASA ---
Conscious Sedation Pre-Proced Time Reviewed: 11:22 ASA Class: 3 Airway Mallampati Classification: ([place] appropriate class) I. II. III, IV Lungs Heart ASA score ASA 1: a normal healthy patient ASA 2: a patient with a mild systemic disease (mid diabetes, controlled hypertension, obesity ASA 3: a patient with a severe systemic disease that limits activity (angina , COPD, prior Myocardial infarction) ASA 4: a patient with an incapacitating disease that is a constant threat to life (CHF, renal failure) ASA 5: a moribund patient not expected to survive 24 hrs. (ruptured aneurysm) ASA 6: a declared brain patient whose organs are being harvested. For emergent operations, add the letter E after the classification Grade 1 Sedation Plan: Discussed options with patient/fam Note The patient is an appropriate candidate to undergo the planned procedure, sedation, and anesthesia. The patient immediately re-assessed prior to indication. VENKAT COPELAND MD Apr 24, 2017 11:22 am
[2017-04-24] MEDS: ACETAMINOPHEN 325 MG TABLET/CAPLET (TYLENOL) PO PRN (13:42)
[2017-04-24 17:30] LABS: HEMOGLOBIN 8.8 G/DL (11.5-16.0)
--- NOTE | 2017-04-24 19:36 | CONSULTATION REPORT ---
DATE OF SERVICE: 04/24/2017 REFERRING PHYSICIAN: Gilda Gasca MD The patient is admitted to room 426. IMPRESSION: 1. Microcytic anemia consistent with iron deficiency. 2. Symptoms due to the anemia. 3. History of coronary artery disease requiring stent placements. 4. Previous history of iron deficiency anemia requiring packed red blood cell transfusion. RECOMMENDATIONS: 1. Agree with PRBC transfusion because of symptomatic anemia and coronary artery disease. Maintain hemoglobin more than 7 to 8 grams per deciliter. 2. Agree with surgical consultation for endoscopic evaluation with EGD and colonoscopy. If this is normal with no source of blood loss, the patient will need a capsule endoscopy to evaluate the small bowel. 3. Based on the results of the endoscopy, if the patient does not have significant gastritis, she may be a candidate for oral iron replacement. If she has evidence of gastritis or ulcers, we would recommend parenteral iron therapy. 4. We will follow the patient with you. BRIEF HISTORY: The patient is a 66-year-old female who was brought to the emergency room with increasing shortness of breath and chest discomfort. She was found to be significantly anemic with a hemoglobin level of 6.6 and was admitted to the hospital for further workup and management. She has received 2 units of packed red blood cells so far. Serum iron studies done from the initial blood sample prior to the transfusion was consistent with a significant iron deficiency. Hematology consultation was obtained to discuss about further workup and management. PAST MEDICAL HISTORY: Significant for iron deficiency anemia and she has required packed red blood cell transfusion approximately two years ago and six or seven years ago. She has had endoscopies in the past, which was verbally reported as unremarkable. She denied receiving parenteral iron therapy and does not remember if she was on oral iron replacement in the past. Other significant past medical history include coronary artery disease diagnosed in 2012. She has required two stent placement at that time. Last cardiac catheterization was in 2014, which was verbally reported as stable. She also was diagnosed with hypertension and hypercholesterolemia and is on treatment for this. The only other medical problem previously is hypothyroidism diagnosed approximately 35 years ago and she has been on replacement. PAST SURGICAL HISTORY: Only previous surgery other than the cardiac catheterizations is TAHBSO done in 2016. SOCIAL HISTORY: The patient is and lives in [place], [place]. She has three children, two daughters and a son, two of whom live close by. She denied any tobacco or recreational drug use and uses alcohol socially. 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 FAMILY HISTORY: Significant for her mother who was diagnosed with vulvar cancer. Two of her cousins on the maternal side of family had malignancies, one with lung cancer and one with an unknown malignancy in their 60s. No other malignancies in the family that the patient knows of. No hematologic problems in the family. PHYSICAL EXAMINATION: GENERAL: Showed an elderly female appearing pale and weak, but otherwise in no acute distress. VITAL SIGNS: Her temperature was 98.1, pulse rate of 84, respirations 16, blood pressure 120/66. HEENT: Normocephalic. Extraocular muscles intact, conjunctivae pale, oral mucosa moist without lesions. NECK: Supple, with no JVD. No cervical, supraclavicular or axillary lymphadenopathy palpable. CHEST: Symmetrical. LUNGS: Fairly clear to auscultation without wheezes or rales. CARDIOVASCULAR: Regular in rate and rhythm. No murmurs or gallops heard. ABDOMEN: Slightly obese, soft, nontender with no hepatosplenomegaly or other masses palpable. EXTREMITIES: Showed no edema, petechia or ecchymosis. NEUROLOGIC: Grossly intact without focal motor deficits. LABORATORY DATA: CBC done at the time of admission showed white count of 10.1, hemoglobin 6.6, MCV 71, RDW 17.7, platelet count 441,000 with neutrophil count of 5.2 and lymphocyte count of 3.7. She had a repeat CBC done after one unit of packed red blood cell transfusion, which was done earlier today. A CBC showed white count of 7.1 with hemoglobin of 6.8 and platelet count of 364,000. Chemistry panel done at the time of admission showed normal electrolytes. BUN was 17 and creatinine 0.92 with GFR more than 60 mL per minute. Liver function studies were within normal limits. Serum iron studies showed a total iron 11, TIBC was 446 and a ferritin level of 4.0 consistent with severe iron deficiency. Fecal occult blood test done earlier today was negative. Chest x-ray done at the time of admission showed a hiatal hernia with no other acute cardiopulmonary process. The patient is scheduled for an EGD and colonoscopy tomorrow. Thank you for allowing me to participate in this patient's care. I will follow the patient with you and make appropriate recommendations. Job ID: [id number] DocumentID: [id number] Dictated Date: 04/24/2017 17:38:01 [employer] Manager Date: 04/24/2017 19:35:45 Dictated By: CELENA FALCON MD
[2017-04-24] MEDS ORDERED: ATORVASTATIN 40 MG (LIPITOR) TABLET PO SCH (21:00)
[2017-04-25] VITALS: BP 118/61
[2017-04-25] MEDS: NS IV 1000 ML 1,000 ML IV SCH ×2 (01:50→11:28)
[2017-04-25] MEDS: ACETAMINOPHEN 325 MG TABLET/CAPLET (TYLENOL) PO PRN ×2 (01:50→09:33)
[2017-04-25 03:11] VITALS: BP 118/65
[2017-04-25] MEDS: LEVOTHYROXINE 112 MCG (LEVOTHROID) TAB PO SCH (06:29)
[2017-04-25] MEDS: PANTOPRAZOLE 40 MG (PROTONIX) TAB PO SCH (06:29)
[2017-04-25 08:00] VITALS: BP 139/67
--- NOTE | 2017-04-25 09:06 | Progress Note-Cardiology ---
Cardiology SOAP Progress Note Subjective: Sitting up in bed. C/O dull headache this morning. Reports her chest discomfort is better than yesterday. No c/o SOB this morning. Awaiting endoscopy. Objective: I&O/Vital Signs Vital Sign - Last 12Hours 04/25/17 04/25/17 04/25/17 00:00 03:11 08:00 Temp 98.5 98.0 98.5 Pulse 91 84 81 Resp 18 16 20 B/P (MAP) 118/61 (80) 118/65 (82) 139/67 (91) Pulse Ox 96 97 97 O2 Delivery Room Air Room Air Room Air Intake and Output 04/25/17 00:00 Intake Total 1050 ml Output Total 1200 ml Balance -150 ml Weight (Pounds): 174 Weight (Ounces): 0.0 Weight (Calculated Kilograms): 78.234545 Constitutional: AAO x 3, well-developed, well-nourished Respiratory: lungs clear to percussion, lungs clear to auscultation Cardiovascular: regular rate-rhythm, S1 and S2, systolic murmur (faint URBAN at card base) Gastrointestional: No tender, No soft, No guarding, No rebound, audible bowel sounds Extremities: No clubbing, No cyanosis, No significant edema Neurologic/Psychiatric: oriented x 3, grossly intact, power is 5/5 both on sides Skin: No rash on exposed areas, No ulcerations on exposed areas Results/Procedures: Labs Laboratory Tests 04/24/17 17:22: Hemoglobin 8.8#L, Hematocrit 29L Laboratory Tests 04/23/17 13:14 04/24/17 05:55 04/24/17 17:22 A/P: Assessment: Profound, symptomatic anemia of undetermined etiology Shortness of breath likely related to marked anemia Epigastric/chest discomfort w/o evidence of ACS Hospitalization with medication-related hypotension and hypotension-related ARF in 2013 H/o LCX stent (Promus 2.5x8) and OM stent (Promus 2.5x12) by Dr Rajan in [place], [place] in 2012. Last card cath by Dr Kowalski in [place], [place] in 2014. Pt states last cath did not show any significant obstructive CAD Reports h/o lg hiatal hernia Reports h/o anemia requiring transfusions in the past Plan: * Blood transfusion to correct anemia is likely to improve symptoms * Hold antiplatelet agents since GI bleed is a concern * Resume antiplatelet agents when bleeding excluded/treated * Monitor labs * Endoscopy is planned for this afternoon Clinical Quality Measures AMI/AHF: ASA po Prior to arrival: AMEYA Hinds Apr 25, 2017 09:06
[2017-04-25] MEDS: VALSARTAN 160 MG (DIOVAN) TABLET PO SCH (09:32)
[2017-04-25] MEDS: FAMOTIDINE 20 MG (PEPCID) TABLET PO SCH (09:32)
[2017-04-25] MEDS: ASPIRIN 81 MG CHEW (CHILDREN'S ASA) PO SCH (09:32)
[2017-04-25] MEDS ORDERED: IRON SUCROSE 200 MG/10 ML (VENOFER) VIAL IV NR (11:16)
--- NOTE | 2017-04-25 11:52 | Discharge Summary-Hospitalist ---
Diagnosis/Chief Complaint Date of Admission Apr 23, 2017 at 15:31 Date of Discharge Discharge Date: Apr 25, 2017 Admission Diagnosis Symptomatic anemia Discharge Diagnosis (1) Symptomatic anemia Status: Acute Assessment & Plan: T&S- will likely need T&C if needs any further transfusions Transfuse 1 unit only, repeat in H&H in AM only No obvious source of anemia Will consult Heme, appreciate recs Will consulte Surgery, appreciate recs Iron studies ordered Will likely need Infed during admission (2) Essential (primary) hypertension Status: Chronic Assessment & Plan: Well controlled currently (3) CAD (coronary artery disease) Status: Chronic Assessment & Plan: Having chest pain likely due to anemia Cardiology consulted appreciate recs ASA given in ER Monitor on tele (4) Hypomagnesemia Assessment & Plan: Will replace (5) Prophylactic measure Assessment & Plan: SCDs due to anemia CLD for prep for EGD/colonoscopy NS at 100ml/hr Discharge Summary Discharge Physical Examination Allergies: Coded Allergies: No Known Drug Allergies (Unverified , 04/23/17) Vitals & I&Os Vital Signs Date Time Temp Pulse Resp B/P (MAP) Pulse Ox O2 Delivery O2 Flow Rate FiO2 04/25/17 12:00 97.8 85 20 158/72 (100) 98 Room Air Hospital Course Notes from 04/25/17 Chart Review: No fever Vitals stable Hgb 8.8 after [address] Mireles Review: Pt will have scope today Pt has had stents Dr. Field is on board Pt Interview: Pt states her scopes are scheduled for this afternoon Pt confirms PCP as Dr. Browning in [place] Pt states she has had similar issues before. Pt states she was given blood after her hysterectomy about two years ago. Pt states she has not had her labs drawn recently so is unsure of her usual Hgb level Pt denies seeing any other doctor regularly. 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 Field and ASTRID Pham, pt states that her anemia may be causing these issues Pt was informed that I would like to reach out to Hematology. Pt states she has seen Dr. Rey since her admission here. Pt states Dr. Rey suggested iron infusions to her. Pt states that she likes Dr. Rey and he treated her mother previously Possible DC today if scopes and recovery go well. Pt denies living alone. No fever, vital signs stable, pleasant, improved Regular rate and rhythm, clear to auscultation bilaterally No edema Plan: Scopes this afternoon Confer with Dr. Rey Scribed by Mary Valdivia under direct supervision of Dr. Shirley Dey. Hospital course: Patient was transfused 2 units of packed red blood cells and tolerated that well. Endoscopy with EGD and colonoscopy performed by Dr. Mireles was negative for any source of bleeding. She'll receive 1 dose of iron IV form now and set up for a series order under Dr. Rey and will monitor patient closely in the meantime. Labs (last 24 hrs) Laboratory Tests 04/24/17 17:22: Hemoglobin 8.8#L, Hematocrit 29L 04/25/17 10:15: Lab Scanned Report Transfusion Reaction Form 04/25/17 12:49: Lab Scanned Report Transfusion Reaction Form Pending Labs Laboratory Tests 04/25/17 10:15: Lab Scanned Report Transfusion Reaction Form 04/25/17 12:49: Lab Scanned Report Transfusion Reaction Form Discussion & Recommendations Discharge Planning: <30 minutes discharge planning Discharge Home Medications: Active Scripts Active Reported Centrum Silver Tablet (Multivit-Min/FA/Lycopene/Lut) 1 Each Tablet 1 Each PO DAILY Tylenol (Acetaminophen) 325 Mg Tablet 325 Mg PO Q6H PRN Aleve (Naproxen Sodium) 220 Mg Capsule 220 Mg PO PRN PRN Valsartan 160 Mg Tablet 160 Mg PO DAILY Acid Focus Puller (FAMOTIDINE) (Famotidine) 20 Mg Tablet 40 Mg PO DAILY Aspirin 81 Mg Tablet 81 Mg PO DAILY Lipitor 40MG (Atorvastatin Calcium) 40 Mg Tablet 40 Mg PO DAILY Nitroglycerin 0.4 Mg Tab.subl 0.4 Mg SL PRN Protonix (Pantoprazole Sodium) 40 Mg Tablet.dr 40 Mg PO DAILY Levothyroxine 112 Mcg Tab (Levothyroxine Sodium) 112 Mcg Tablet 112 Mcg PO DAILY Instructions to patient/family Please see electronic discharge instructions given to patient. Clinical Quality Measures AMI/AHF: ASA po Prior to arrival: No DVT/VTE Risk/Contraindication: Risk Factor Score Per Nursin RFS Level Per Nursing on Admit: 3=High Problem Qualifiers (1) CAD (coronary artery disease): Coronary Disease-Associated Artery/Lesion type: [place] artery [place] vs. transplanted heart: [place] heart Associated angina: angina presence unspecified Qualified Codes: I25.10 - Atherosclerotic heart disease of [place] coronary artery without angina pectoris SHIRLEY DEY DO Apr 25, 2017 11:52
[2017-04-25 12:00] VITALS: BP 158/72
[2017-04-25] MEDS ORDERED: MIDAZOLAM 2 MG/2 ML (VERSED) VIAL ONE ×3 (12:39→12:40)
[2017-04-25] MEDS ORDERED: NS IV 500 ML 500 ML ONE (12:39)
[2017-04-25] MEDS ORDERED: HURRICAINE EXT TUBE (BENZOCAINE) ONE (12:40)
[2017-04-25] MEDS ORDERED: fentaNYL INJECTION 100 MCG/2 ML AMP ONE (12:40)
[2017-04-25] MEDS: fentaNYL INJECTION 100 MCG/2 ML AMP IVP PRN ×2 (12:43→12:53)
[2017-04-25] MEDS: MIDAZOLAM 2 MG/2 ML (VERSED) VIAL IVP PRN ×2 (12:44→12:50)
--- NOTE | 2017-04-25 13:06 | Endo Procedure Record ---
Endo Procedure Report Date of Procedure Last Colonoscopy: Yes Apr 25, 2017 Surgeon (s) VENKAT COPELAND MD Post Procedure/Op Diagnosis Mild distal gastritis Sigmoid diverticulosis Procedure Performed EGD with antral biopsy for H. pylori Colonoscopy to cecum Description of Procedure Anesthesia Type: Conscious Sedation Specimen(s) collected/removed antral mucosa for H. pylori Description of the Procedure Indication for the procedures: This lady has been admitted with iron deficiency anemia. Following transfusion, GI endoscopy was felt to be reasonable. Informed consent was obtained after reviewing the procedures in detail. Description of procedures: EGD/antral biopsy: She was placed in left lateral decubitus position and her vital signs were monitored. Conscious sedation was achieved using Versed and fentanyl. The flexible gastroscope was introduced down the esophagus, past the stomach, into the proximal duodenum. Findings: Esophagus: Quite tortuous with a short hiatal hernia. Stomach: Mild distal gastritis was noted. Biopsy for H. pylori was obtained. Duodenum: Normal She tolerated the procedure well and was turned around in preparation for colonoscopy. Impression: Iron deficiency anemia. No offending lesions found on upper endoscopy. Colonoscopy: Digital rectal examination was unremarkable. The colonoscope was then introduced in the rectum and advanced all the way up to cecum The quality of bowel preparation was excellent. The scope was then withdrawn slowly and the mucosa examined in a systematic fashion. Finding: Sigmoid diverticulosis. No polyps were found She tolerated the procedures well and was taken back to the nursing area in a stable condition. Impression: Iron deficiency anemia. No polyps. Copies To: ANAID MCNULTY MD Copies To: CELENA FALCON XAVIER M MD Apr 25, 2017 1:06 pm
[2017-04-25] MEDS ORDERED: NS IV 500 ML 500 ML IV PRN (13:14)
[2017-04-25] MEDS ORDERED: HURRICAINE EXT TUBE (BENZOCAINE) XX PRN (13:15)
[2017-04-25 15:55] VITALS: BP 158/72
[2017-04-25] MEDS ORDERED: ATORVASTATIN 20 MG (LIPITOR) TABLET PO SCH (21:00)
--- OUTSIDE RECORDS SUMMARY | 2017-04-26 11:07 | XMS REPORT | Continuity of Care Document ---
Author Author [facility] Organization [facility] Address Unknown Phone Unavailable Allergies Active Description Code Type Severity Reaction Onset Reported/Identified Relationship to Patient Clinical Status Yes No Known Drug Allergies [id number] Drug Allergy Unknown N/A 04/23/2017 Medications There is no data. 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 Results Test Result Range Complete blood count (CBC) with automated white blood cell (WBC) differential - 04/23/17 13:14 Blood leukocytes automated count (number/volume) 10.1 10*3/uL 4.3-11.0 Blood erythrocytes automated count (number/volume) 3.27 10*6/uL 4.35-5.85 Venous blood hemoglobin measurement (mass/volume) 6.6 g/dL 11.5-16.0 Blood hematocrit (volume fraction) 23 % 35-52 Automated erythrocyte mean corpuscular volume 71 [z_us] 80-99 Automated erythrocyte mean corpuscular hemoglobin (mass [...] 04/23/17 13:14 BNP level < pg/mL <100.0 Serum iron and total iron binding capacity panel - 04/23/17 13:14 Serum or plasma iron measurement (mass/volume) 11 % 35- 180 Total iron binding capacity and transferrin saturation measurement 2 % 15-50 Iron binding capacity [mass/volume] in serum or plasma 446 % 280-380 UIBC (unsaturated iron binding capacity) 435 % 55-450 Serum or plasma ferritin measurement (mass/volume) 4.0 % 15.0-150.0 RED CELLS LEUKO REDUCED AS1 - 04/23/17 15:28 RED CELLS LEUKO REDUCED AS1 TRANSFUSED 04/24/17 1325 NRG Blood type T Indirect antibody screen panel - 04/23/17 15:28 ABO+Rh group AN NR Transfusion band number [id number] [facility] Blood group antibody screen NEGATIVE [facility] Complete blood count (CBC) with automated white blood cell (WBC) differential - 04/24/17 05:55 Blood leukocytes automated count (number/volume) 7.1 10*3/uL 4.3-11.0 Blood erythrocytes automated count (number/volume) 3.26 10*6/uL 4.35-5.85 Venous blood hemoglobin measurement (mass/volume) 6.8 g/dL 11.5-16.0 Blood hematocrit (volume fraction) 24 % 35-52 Automated erythrocyte mean corpuscular volume 72 [foz_us] 80-99 Automated erythrocyte mean corpuscular hemoglobin (mass per erythrocyte) 21 pg 25-34 Automated erythrocyte mean corpuscular hemoglobin concentration measurement ( mass/volume) 29 g/dL 32-36 Automated erythrocyte distribution width ratio 17.9 % 10.0-14.5 Automated blood platelet count (count/volume) 364 10*3/uL 130-400 Automated blood platelet mean volume measurement 9.3 [foz_us] 7.4-10.4 Automated blood neutrophils/100 leukocytes 46 % 42-75 Automated blood lymphocytes/100 leukocytes 37 % 12-44 Blood monocytes/100 leukocytes 11 % 0-12 Automated blood eosinophils/100 leukocytes 4 % 0-10 Automated blood basophils/100 leukocytes 1 % 0-10 Blood neutrophils automated count (number/volume) 3.3 10*3 1.8-7.8 Blood lymphocytes automated count (number/volume) 2.6 10*3 1.0-4.0 Blood monocytes automated count (number/volume) 0.8 10*3 0.0-1.0 Automated eosinophil count 0.3 10*3/uL 0.0-0.3 Automated blood basophil count (count/volume) 0.0 10*3/uL 0.0-0.1 Whole blood basic metabolic panel - 04/24/17 05:55 Serum or plasma sodium measurement (moles/volume) 141 mmol/L 135-145 Serum or plasma potassium measurement (moles/volume) 4.0 mmol/L 3.6-5.0 Serum or plasma chloride measurement (moles/volume) 110 mmol/L 98-107 Carbon dioxide 25 mmol/L 21-32 Serum or plasma anion gap determination (moles/volume) 6 mmol/L 5-14 Serum or plasma urea nitrogen measurement (mass/volume) 13 mg/dL 7-18 Serum or plasma creatinine measurement (mass/volume) 0.73 mg/dL 0.60-1.30 Serum or plasma urea nitrogen/creatinine mass ratio 18 NRG Serum or plasma creatinine measurement with calculation of estimated glomerular filtration rate > NRG Serum or plasma glucose measurement (mass/volume) 84 mg/dL 70-105 Serum or plasma calcium measurement (mass/volume) 8.2 mg/dL 8.5-10.1 Lipid 1996 panel - 04/24/17 05:55 Serum or plasma triglyceride measurement (mass/volume) 90 mg/dL <150 Serum or plasma cholesterol measurement (mass/volume) 139 mg/dL < 200 Serum or plasma cholesterol in HDL measurement (mass/volume) 40 mg/ dL 40-60 Cholesterol in LDL [mass/volume] in serum or plasma by direct assay 83 mg/dL 1-129 Serum or plasma cholesterol in VLDL measurement (mass/volume) 18 mg/ dL 5-40 Stool occult blood screen - 04/24/17 09:01 Stool gastrointestinal hemoglobin detection NEGATIVE NEGATIVE Whole blood hemoglobin and hematocrit panel - 04/24/17 17:22 Venous blood hemoglobin measurement (mass/volume) 8.8 g/dL 11.5-16.0 Blood hematocrit (volume fraction) 29 % 35-52 Encounters ACCT No. Visit Date/Time Discharge Status Pt. Type Provider Facility Loc./Unit Complaint [id number] 04/23/2017 15:31:00 04/25/2017 15:55:00 DIS Inpatient SOBIA HOWARD MD [facility] 4TH ANEMIA [id number] 04/18/2013 22:20:00 04/20/2013 14:20:00 DIS Inpatient YADI DAN FACC, KARISSA YANG CCDS [facility] CSD CP/SYNCOPE
== END 2017-04-25 15:55 | disposition home or self-care (01) | DRG 812 ==
LOC: EDUNIT# 12:55 → ER 12:57 → UNDOADMOB 15:31 → 4TH 15:31 → UNDODISOB 04-25 15:55
PROVIDERS: ADMIT Family Medicine; ATTEND Family Medicine
PROC: 0DB78ZX Excision of Stomach, Pylorus, Via Natural or Artificial Opening Endoscopic, Diagnostic (ICD-10-PCS; principal; 2017-04-25 12:40)
PROC: 0DJD8ZZ Inspection of Lower Intestinal Tract, Via Natural or Artificial Opening Endoscopic (ICD-10-PCS; 2017-04-25 12:40)
DX: D50.9 Iron deficiency anemia, unspecified (principal); K29.70 Gastritis, unspecified, without bleeding; K57.30 Diverticulosis of large intestine without perforation or abscess without bleeding; I25.10 Atherosclerotic heart disease of native coronary artery without angina pectoris; Z95.5 Presence of coronary angioplasty implant and graft; I10 Essential (primary) hypertension; E78.00 Pure hypercholesterolemia, unspecified; E03.9 Hypothyroidism, unspecified; E83.42 Hypomagnesemia; Z83.71 Family history of colonic polyps
CPT/HCPCS: 36415; 71046; 80048; 80053; 80061; 82274; 82728; 83540; 83735; 83874; 83880; 84484; 85014; 85018; 85025; 85610; 85730; 86850; 86900; 86901; 86920; 93005; 93041; 96360

== ENCOUNTER 2017-06-07 14:48 | Outpatient (RCR) | payer MEDICARE, OTHER ==
[2017-06-04 09:37] LABS: ABSOLUTE RETIC # 35 10e9/L (24-90); BASOPHILS % (AUTO) 0 % (0-10); EOSINOPHILS # (AUTO) 0.3 10^3/uL (0.0-0.3); EOSINOPHILS % (AUTO) 4 % (0-10); HEMATOCRIT 38 % (35-52); HEMOGLOBIN 12.2 G/DL (11.5-16.0); LYMPHOCYTES # (AUTO) 2.4 X 10^3 (1.0-4.0); LYMPHOCYTES % (AUTO) 34 % (12-44); MEAN CORPUSCULAR HEMOGLOBIN 27 PG (25-34); MEAN CORPUSCULAR HGB CONC 32 G/DL (32-36); MEAN CORPUSCULAR VOLUME 86 FL (80-99); MEAN PLATELET VOLUME 9.4 FL (7.4-10.4); MONOCYTES # (AUTO) 0.6 X 10^3 (0.0-1.0); MONOCYTES % (AUTO) 9 % (0-12); NEUTROPHILS # (AUTO) 3.6 X 10^3 (1.8-7.8); NEUTROPHILS % (AUTO) 52 % (42-75); PLATELET COUNT 277 10^3/uL (130-400); RED BLOOD COUNT 4.47 10^6/uL (4.35-5.85); RED CELL DISTRIBUTION WIDTH 26.7 % (10.0-14.5); RETICULOCYTE % 0.79 % (0.50-2.40); WHITE BLOOD COUNT 6.9 10^3/uL (4.3-11.0)
[~2017-06-07 14:48] MED LIST changes: +ACET325T38 PO; +FAMO20TA3 PO; +IRON SUCROSE 100 MG/5 ML (VENOFER) VIAL CANCER CTR IV SCH; +MULT-1029 PO; +NAPR220C11 PO; +VALS160T28 PO
== END 2017-07-29 | disposition home or self-care (01) ==
LOC: ONC 14:48
PROVIDERS: ATTEND Internal Medicine Hematology & Oncology
DX: D50.9 Iron deficiency anemia, unspecified (principal)
CPT/HCPCS: 36415; 82728; 85025; 85045; 96374; 99213

== ENCOUNTER → 2017-08-24 | Outpatient (CLI) | payer MEDICARE, OTHER ==
[~2017-08-24] MED LIST changes: -IRON SUCROSE 100 MG/5 ML (VENOFER) VIAL CANCER CTR IV SCH; -VALS160T28 PO; +VALS160T29 PO
--- NOTE | 2017-08-24 13:29 | Diagnostic Imaging Report ---
INDICATION: Routine screening. Comparison is made with prior study from 08/10/2011 and 02/17/2009. 2-D and 3-D bilateral screening mammography was performed with CAD. The current study was also evaluated with a Computer Aided Detection (CAD) system. FINDINGS: Both breasts are primarily involutional. There appears to be an intramammary lymph node in the outer left breast, stable. No new mass or malignant-appearing microcalcifications are seen. The axillae are unremarkable. IMPRESSION: No mammographic features suspicious for malignancy are identified. ACR BI-RADS Category 2: Benign findings. Result letter will be mailed to the patient. Note: At least 10% of breast cancer is not imaged by mammography. Dictated by: Dictated on workstation # [id number]
== END ==
LOC: RAD 09:05
PROVIDERS: ATTEND Internal Medicine
DX: Z12.31 Encounter for screening mammogram for malignant neoplasm of breast (principal)
CPT/HCPCS: 77067

== ENCOUNTER 2017-11-12 09:29 | Outpatient (RCR) | payer MEDICARE, OTHER ==
[2017-10-05 09:15] LABS: BASOPHILS % (AUTO) 1 % (0-10); EOSINOPHILS # (AUTO) 0.3 10^3/uL (0.0-0.3); EOSINOPHILS % (AUTO) 6 % (0-10); HEMATOCRIT 38 % (35-52); HEMOGLOBIN 12.6 G/DL (11.5-16.0); LYMPHOCYTES # (AUTO) 2.6 X 10^3 (1.0-4.0); LYMPHOCYTES % (AUTO) 44 % (12-44); MEAN CORPUSCULAR HEMOGLOBIN 32 PG (25-34); MEAN CORPUSCULAR HGB CONC 33 G/DL (32-36); MEAN CORPUSCULAR VOLUME 97 FL (80-99); MEAN PLATELET VOLUME 9.3 FL (7.4-10.4); MONOCYTES # (AUTO) 0.7 X 10^3 (0.0-1.0); MONOCYTES % (AUTO) 12 % (0-12); NEUTROPHILS # (AUTO) 2.2 X 10^3 (1.8-7.8); NEUTROPHILS % (AUTO) 38 % (42-75); PLATELET COUNT 260 10^3/uL (130-400); RED BLOOD COUNT 3.89 10^6/uL (4.35-5.85); RED CELL DISTRIBUTION WIDTH 12.4 % (10.0-14.5); WHITE BLOOD COUNT 5.8 10^3/uL (4.3-11.0)
[2017-10-05 09:41] LABS: ALANINE AMINOTRANSFERASE 18 U/L (0-55); ALBUMIN 3.8 GM/DL (3.2-4.5); ALKALINE PHOSPHATASE 68 U/L (40-136); BILIRUBIN,TOTAL 0.6 MG/DL (0.1-1.0); BUN/CREATININE RATIO 14; CALCIUM 9.6 MG/DL (8.5-10.1); CARBON DIOXIDE 26 MMOL/L (21-32); CHLORIDE 108 MMOL/L (98-107); CREATININE SERUM 0.85 MG/DL (0.60-1.30); GFR ESTIMATED > 60; GLUCOSE 82 MG/DL (70-105); POTASSIUM 4.2 MMOL/L (3.6-5.0); SODIUM 140 MMOL/L (135-145); TOTAL PROTEIN 7.4 GM/DL (6.4-8.2)
[~2017-11-12 09:29] MED LIST changes: +FERRIC CARBOXYMALTOSE (CANCER) 750 MG in NS (IVPB) CANCER CENTER 250 ML IV SCH
[2017-11-12 09:58] LABS: BASOPHILS % (AUTO) 1 % (0-10); EOSINOPHILS # (AUTO) 0.3 10^3/uL (0.0-0.3); EOSINOPHILS % (AUTO) 4 % (0-10); HEMATOCRIT 40 % (35-52); HEMOGLOBIN 13.1 G/DL (11.5-16.0); LYMPHOCYTES # (AUTO) 2.6 X 10^3 (1.0-4.0); LYMPHOCYTES % (AUTO) 43 % (12-44); MEAN CORPUSCULAR HEMOGLOBIN 32 PG (25-34); MEAN CORPUSCULAR HGB CONC 33 G/DL (32-36); MEAN CORPUSCULAR VOLUME 98 FL (80-99); MEAN PLATELET VOLUME 9.3 FL (7.4-10.4); MONOCYTES # (AUTO) 0.6 X 10^3 (0.0-1.0); MONOCYTES % (AUTO) 10 % (0-12); NEUTROPHILS # (AUTO) 2.6 X 10^3 (1.8-7.8); NEUTROPHILS % (AUTO) 43 % (42-75); PLATELET COUNT 252 10^3/uL (130-400); RED BLOOD COUNT 4.05 10^6/uL (4.35-5.85); RED CELL DISTRIBUTION WIDTH 13.4 % (10.0-14.5); WHITE BLOOD COUNT 6.1 10^3/uL (4.3-11.0)
== END 2018-01-03 | disposition home or self-care (01) ==
LOC: ONC 09:29
PROVIDERS: ATTEND Internal Medicine Hematology & Oncology
DX: D50.9 Iron deficiency anemia, unspecified (principal)
CPT/HCPCS: 36415; 80053; 82728; 85025; 96365

== ENCOUNTER → 2017-12-11 | Outpatient (CLI) | payer MEDICARE, OTHER ==
[~2017-12-11] VITALS: Ht 157.5 cm; Wt 80.3 kg
[~2017-12-11] MED LIST changes: +CATHETER FLUSH 10 ML SYR IV PRN; -FERRIC CARBOXYMALTOSE (CANCER) 750 MG in NS (IVPB) CANCER CENTER 250 ML IV SCH; +REGADENOSON 0.4 MG/5 ML SYR (LEXISCAN) IV ONE
[2017-12-11 13:02] VITALS: BP 156/84
[2017-12-11 13:06] VITALS: BP 16/97
--- NOTE | 2017-12-11 20:21 | STRESS TEST ---
DATE OF SERVICE: 12/11/2017 RESTING AND POST REGADENOSON TECHNETIUM-99M TETROFOSMIN SPECT CT IMAGING ORDERING PHYSICIAN: Leelee Laws APRN OTHER PHYSICIAN: Dr. Grullon. CLINICAL DIAGNOSIS: Chest discomfort. Baseline images were carried out after injection of 10.51 mCi of technetium-99m Tetrofosmin. This was followed by 0.4 mg of regadenoson and 29 mCi of technetium-99m Tetrofosmin for stress imaging. The electrocardiogram showed sinus rhythm at baseline and did not change significantly with the regadenoson infusion. The patient noted mild chest heaviness and flushing and mild shortness of breath following regadenoson infusion, which resolved in a few minutes. Review of images at rest and following stress does not indicate any distinct perfusion defects consistent with significant myocardial ischemia or infarction. Gated images show normal global left ventricular systolic function and normal regional wall motion. Left ventricular ejection fraction is calculated to be 61%. Left ventricular end-diastolic volume is 25 mL. TID is absent (0.93). CONCLUSIONS: 1. No evidence of significant myocardial ischemia or infarction on this study. 2. Normal regional wall motion. 3. Normal global left ventricular systolic function with a calculated ejection fraction of 61%. 4. Normal left ventricular cavity size. Job ID: [id number] DocumentID: [id number] Dictated Date: 12/11/2017 15:31:08 Chorus Dancer Date: 12/11/2017 20:20:46 Dictated By: KARISSA GRULLON MD, MA, FACP, FACC, MTDD
== END ==
LOC: CARD 10:54
PROVIDERS: ATTEND Nurse Practitioner Family
DX: R07.89 Other chest pain (principal); I25.10 Atherosclerotic heart disease of native coronary artery without angina pectoris; I10 Essential (primary) hypertension; E78.5 Hyperlipidemia, unspecified
CPT/HCPCS: 78452; 93017

== ENCOUNTER 2018-01-21 09:42 | Outpatient (RCR) | payer MEDICARE, OTHER ==
[2018-01-14 10:00] LABS: BASOPHILS % (AUTO) 1 % (0-10); EOSINOPHILS # (AUTO) 0.3 10^3/uL (0.0-0.3); EOSINOPHILS % (AUTO) 4 % (0-10); HEMATOCRIT 43 % (35-52); HEMOGLOBIN 14.1 G/DL (11.5-16.0); LYMPHOCYTES # (AUTO) 2.6 X 10^3 (1.0-4.0); LYMPHOCYTES % (AUTO) 35 % (12-44); MEAN CORPUSCULAR HEMOGLOBIN 32 PG (25-34); MEAN CORPUSCULAR HGB CONC 33 G/DL (32-36); MEAN CORPUSCULAR VOLUME 99 FL (80-99); MEAN PLATELET VOLUME 9.6 FL (7.4-10.4); MONOCYTES # (AUTO) 0.6 X 10^3 (0.0-1.0); MONOCYTES % (AUTO) 8 % (0-12); NEUTROPHILS # (AUTO) 3.7 X 10^3 (1.8-7.8); NEUTROPHILS % (AUTO) 52 % (42-75); PLATELET COUNT 222 10^3/uL (130-400); RED CELL DISTRIBUTION WIDTH 12.8 % (10.0-14.5); WHITE BLOOD COUNT 7.3 10^3/uL (4.3-11.0)
[2018-01-14 10:15] LABS: ALANINE AMINOTRANSFERASE 37 U/L (0-55); ALBUMIN 4.1 GM/DL (3.2-4.5); ALKALINE PHOSPHATASE 91 U/L (40-136); BILIRUBIN,TOTAL 0.5 MG/DL (0.1-1.0); BUN/CREATININE RATIO 25; CALCIUM 9.8 MG/DL (8.5-10.1); CARBON DIOXIDE 26 MMOL/L (21-32); CHLORIDE 106 MMOL/L (98-107); CREATININE SERUM 0.85 MG/DL (0.60-1.30); GFR ESTIMATED > 60; GLUCOSE 92 MG/DL (70-105); POTASSIUM 4.1 MMOL/L (3.6-5.0); SODIUM 140 MMOL/L (135-145); TOTAL PROTEIN 7.9 GM/DL (6.4-8.2)
[~2018-01-21 09:42] MED LIST changes: -CATHETER FLUSH 10 ML SYR IV PRN; -REGADENOSON 0.4 MG/5 ML SYR (LEXISCAN) IV ONE
== END 2018-04-14 | disposition home or self-care (01) ==
LOC: ONC 09:42
PROVIDERS: ATTEND Internal Medicine Hematology & Oncology
DX: D50.9 Iron deficiency anemia, unspecified (principal)
CPT/HCPCS: 36415; 80053; 82728; 85025; 99213

== ENCOUNTER 2018-07-15 10:05 | Outpatient (RCR) | payer MEDICARE, OTHER ==
[2018-06-17 10:24] LABS: BASOPHILS % (AUTO) 1 % (0-10); EOSINOPHILS # (AUTO) 0.3 10^3/uL (0.0-0.3); EOSINOPHILS % (AUTO) 3 % (0-10); HEMATOCRIT 38 % (35-52); HEMOGLOBIN 12.9 G/DL (11.5-16.0); LYMPHOCYTES # (AUTO) 2.9 X 10^3 (1.0-4.0); LYMPHOCYTES % (AUTO) 39 % (12-44); MEAN CORPUSCULAR HEMOGLOBIN 34 PG (25-34); MEAN CORPUSCULAR HGB CONC 34 G/DL (32-36); MEAN CORPUSCULAR VOLUME 100 FL (80-99); MEAN PLATELET VOLUME 9.4 FL (7.4-10.4); MONOCYTES # (AUTO) 0.8 X 10^3 (0.0-1.0); MONOCYTES % (AUTO) 10 % (0-12); NEUTROPHILS # (AUTO) 3.4 X 10^3 (1.8-7.8); NEUTROPHILS % (AUTO) 47 % (42-75); PLATELET COUNT 252 10^3/uL (130-400); RED CELL DISTRIBUTION WIDTH 11.9 % (10.0-14.5); WHITE BLOOD COUNT 7.4 10^3/uL (4.3-11.0)
[2018-06-17 10:41] LABS: ALBUMIN 3.8 GM/DL (3.2-4.5); BILIRUBIN,TOTAL 0.5 MG/DL (0.1-1.0); CALCIUM 9.4 MG/DL (8.5-10.1); CREATININE SERUM 0.98 MG/DL (0.60-1.30); POTASSIUM 4.1 MMOL/L (3.6-5.0); TOTAL PROTEIN 7.2 GM/DL (6.4-8.2)
== END 2018-09-15 | disposition home or self-care (01) ==
LOC: ONC 10:05
PROVIDERS: ATTEND Internal Medicine Hematology & Oncology
DX: D50.9 Iron deficiency anemia, unspecified (principal)
CPT/HCPCS: 36415; 80053; 82728; 85025; 99213

== ENCOUNTER 2019-01-21 10:46 | Outpatient (RCR) | payer MEDICARE, OTHER ==
[2019-01-08 12:16] LABS: BASOPHILS # (AUTO) 0.1 10^3/uL (0.0-0.1); BASOPHILS % (AUTO) 1 % (0-10); EOSINOPHILS # (AUTO) 0.3 10^3/uL (0.0-0.3); EOSINOPHILS % (AUTO) 3 % (0-10); HEMATOCRIT 39 % (35-52); HEMOGLOBIN 12.6 G/DL (11.5-16.0); LYMPHOCYTES # (AUTO) 4.9 X 10^3 (1.0-4.0); LYMPHOCYTES % (AUTO) 51 % (12-44); MEAN CORPUSCULAR HEMOGLOBIN 31 PG (25-34); MEAN CORPUSCULAR HGB CONC 32 G/DL (32-36); MEAN CORPUSCULAR VOLUME 96 FL (80-99); MONOCYTES # (AUTO) 0.8 X 10^3 (0.0-1.0); MONOCYTES % (AUTO) 8 % (0-12); NEUTROPHILS # (AUTO) 3.6 X 10^3 (1.8-7.8); NEUTROPHILS % (AUTO) 37 % (42-75); PLATELET COUNT 308 10^3/uL (130-400); RED CELL DISTRIBUTION WIDTH 12.7 % (10.0-14.5); WHITE BLOOD COUNT 9.7 10^3/uL (4.3-11.0)
[2019-01-08 12:34] LABS: ALANINE AMINOTRANSFERASE 10 U/L (0-55); ALBUMIN 4.2 GM/DL (3.2-4.5); ALKALINE PHOSPHATASE 76 U/L (40-136); BILIRUBIN,TOTAL 0.5 MG/DL (0.1-1.0); BUN/CREATININE RATIO 14; CALCIUM 9.2 MG/DL (8.5-10.1); CARBON DIOXIDE 26 MMOL/L (21-32); CHLORIDE 105 MMOL/L (98-107); CREATININE SERUM 0.86 MG/DL (0.60-1.30); GFR ESTIMATED > 60; GLUCOSE 86 MG/DL (70-105); POTASSIUM 4.1 MMOL/L (3.6-5.0); SODIUM 139 MMOL/L (135-145); TOTAL PROTEIN 7.8 GM/DL (6.4-8.2)
[~2019-01-21 10:46] MED LIST changes: +FERRIC CARBOXYMALTOSE (CANCER) 750 MG in NS (IVPB) CANCER CENTER 250 ML IV SCH
== END 2019-04-08 | disposition home or self-care (01) ==
LOC: ONC 10:46
PROVIDERS: ATTEND Internal Medicine Hematology & Oncology
DX: D50.9 Iron deficiency anemia, unspecified (principal); I25.10 Atherosclerotic heart disease of native coronary artery without angina pectoris; I10 Essential (primary) hypertension; E78.5 Hyperlipidemia, unspecified; K90.9 Intestinal malabsorption, unspecified; Z98.1 Arthrodesis status
CPT/HCPCS: 36415; 80053; 82728; 85025; 96365

== ENCOUNTER 2019-04-10 10:26 | Outpatient (RCR) | payer MEDICARE, OTHER ==
[~2019-04-10 10:26] MED LIST changes: -FERRIC CARBOXYMALTOSE (CANCER) 750 MG in NS (IVPB) CANCER CENTER 250 ML IV SCH
[2019-04-10 10:56] LABS: BASOPHILS % (AUTO) 0 % (0-10); EOSINOPHILS # (AUTO) 0.1 10^3/uL (0.0-0.3); EOSINOPHILS % (AUTO) 1 % (0-10); HEMATOCRIT 43 % (35-52); HEMOGLOBIN 13.9 G/DL (11.5-16.0); LYMPHOCYTES # (AUTO) 2.4 X 10^3 (1.0-4.0); LYMPHOCYTES % (AUTO) 34 % (12-44); MEAN CORPUSCULAR HEMOGLOBIN 32 PG (25-34); MEAN CORPUSCULAR HGB CONC 32 G/DL (32-36); MEAN CORPUSCULAR VOLUME 100 FL (80-99); MEAN PLATELET VOLUME 9.8 FL (7.4-10.4); MONOCYTES # (AUTO) 1.1 X 10^3 (0.0-1.0); MONOCYTES % (AUTO) 16 % (0-12); NEUTROPHILS # (AUTO) 3.5 X 10^3 (1.8-7.8); NEUTROPHILS % (AUTO) 49 % (42-75); PLATELET COUNT 219 10^3/uL (130-400); RED CELL DISTRIBUTION WIDTH 14.2 % (10.0-14.5); WHITE BLOOD COUNT 7.1 10^3/uL (4.3-11.0)
== END 2019-07-09 | disposition home or self-care (01) ==
LOC: ONC 10:26
PROVIDERS: ATTEND Internal Medicine Hematology & Oncology
DX: D50.9 Iron deficiency anemia, unspecified (principal); I25.10 Atherosclerotic heart disease of native coronary artery without angina pectoris; I10 Essential (primary) hypertension; E78.5 Hyperlipidemia, unspecified; K90.9 Intestinal malabsorption, unspecified; Z98.1 Arthrodesis status
CPT/HCPCS: 85025

== ENCOUNTER 2019-07-14 10:46 | Outpatient (RCR) | payer MEDICARE, OTHER ==
[2019-07-10 10:30] LABS: BASOPHILS % (AUTO) 0 % (0-10); EOSINOPHILS # (AUTO) 0.3 10^3/uL (0.0-0.3); EOSINOPHILS % (AUTO) 3 % (0-10); HEMATOCRIT 42 % (35-52); HEMOGLOBIN 13.9 G/DL (11.5-16.0); LYMPHOCYTES # (AUTO) 4.7 X 10^3 (1.0-4.0); LYMPHOCYTES % (AUTO) 53 % (12-44); MEAN CORPUSCULAR HEMOGLOBIN 34 PG (25-34); MEAN CORPUSCULAR HGB CONC 33 G/DL (32-36); MEAN CORPUSCULAR VOLUME 101 FL (80-99); MEAN PLATELET VOLUME 9.1 FL (7.4-10.4); MONOCYTES # (AUTO) 0.8 X 10^3 (0.0-1.0); MONOCYTES % (AUTO) 9 % (0-12); NEUTROPHILS # (AUTO) 3.1 X 10^3 (1.8-7.8); NEUTROPHILS % (AUTO) 35 % (42-75); PLATELET COUNT 291 10^3/uL (130-400); RED CELL DISTRIBUTION WIDTH 12.9 % (10.0-14.5); WHITE BLOOD COUNT 8.9 10^3/uL (4.3-11.0)
[2019-07-10 10:55] LABS: ALANINE AMINOTRANSFERASE 20 U/L (0-55); ALKALINE PHOSPHATASE 86 U/L (40-136); BILIRUBIN,TOTAL 0.4 MG/DL (0.1-1.0); BUN/CREATININE RATIO 15; CALCIUM 9.3 MG/DL (8.5-10.1); CARBON DIOXIDE 27 MMOL/L (21-32); CHLORIDE 104 MMOL/L (98-107); CREATININE SERUM 0.85 MG/DL (0.60-1.30); GFR ESTIMATED > 60; GLUCOSE 87 MG/DL (70-105); POTASSIUM 4.2 MMOL/L (3.6-5.0); SODIUM 139 MMOL/L (135-145)
== END 2019-10-08 | disposition home or self-care (01) ==
LOC: ONC 10:46
PROVIDERS: ATTEND Internal Medicine Hematology & Oncology
DX: D50.9 Iron deficiency anemia, unspecified (principal); I25.10 Atherosclerotic heart disease of native coronary artery without angina pectoris; I10 Essential (primary) hypertension; E78.5 Hyperlipidemia, unspecified; K90.9 Intestinal malabsorption, unspecified; Z98.1 Arthrodesis status
CPT/HCPCS: 80053; 82728; 85025; 99213

== ENCOUNTER → 2019-11-04 | Outpatient (CLI) | payer MEDICARE, OTHER ==
--- NOTE | 2019-11-04 19:14 | Diagnostic Imaging Report ---
INDICATION: Routine screening. COMPARISON is made with prior mammogram from 08/24/2017. 2-D and 3-D bilateral screening mammography was performed with CAD. Both breasts are primarily involutional. Intraparenchymal lymph node, upper outer left breast, stable. No new mass or malignant appearing microcalcifications are seen. Axillae are unremarkable. IMPRESSION: BI-RADS Category 2. No mammographic features suspicious for malignancy are identified. ACR BI-RADS Category 2: Benign findings. Result letter will be mailed to the patient. Note: At least 10% of breast cancer is not imaged by mammography. Dictated by: Dictated on workstation # [id number]
== END ==
LOC: RAD 11:15
PROVIDERS: ATTEND Internal Medicine
DX: Z12.31 Encounter for screening mammogram for malignant neoplasm of breast (principal)
CPT/HCPCS: 77063; 77067

== ENCOUNTER → 2019-11-25 | Outpatient (CLI) | payer MEDICARE, OTHER ==
[~2019-11-25] VITALS: Ht 157 cm; Wt 95.0 kg
[~2019-11-25] MED LIST changes: +CATHETER FLUSH 10 ML SYR IV PRN; +REGADENOSON 0.4 MG/5 ML SYR (LEXISCAN) IV ONE
[2019-11-25 09:11] VITALS: BP 131/72
--- NOTE | 2019-11-25 18:00 | STRESS TEST ---
DATE OF SERVICE: 11/25/2019 RESTING AND POST REGADENOSON TECHNETIUM-99M TETROFOSMIN SPECT CT IMAGING ORDERING PHYSICIAN: Dr. Field. PRIMARY PHYSICIAN: Dr. Cristobal. CLINICAL DIAGNOSES: Coronary artery disease, chest discomfort. Baseline images were carried out after injection of 10.53 mCi of technetium-99m Tetrofosmin. This was followed by 0.4 mg Regadenoson and 32.8 mCi of technetium-99m Tetrofosmin for stress imaging. The electrocardiogram showed sinus rhythm at baseline. The electrocardiogram did not change significantly with the regadenoson infusion. The patient noted some shortness of breath and chest discomfort following regadenoson infusion, which resolved in a few minutes. Review of images at rest and following stress does not indicate evidence of significant myocardial ischemia or infarction. Gated images show normal global left ventricular systolic function with normal regional wall motion. Left ventricular ejection fraction is calculated to be 67%. Left ventricular end diastolic volume is 21 mL. TID is absent (0.96). CONCLUSIONS: 1. No evidence of any significant myocardial ischemia or infarction on this study. 2. Normal regional wall motion. 3. Normal global left ventricular systolic function with a calculated ejection fraction of 67%. Job ID: [id number] DocumentID: [id number] Dictated Date: 11/25/2019 15:46:23 Plumber Supervisor Date: 11/25/2019 18:00:10 Dictated By: KARISSA FIELD MD, MA, FACP, FACC,
== END ==
LOC: CARD 07:42
PROVIDERS: ATTEND Internal Medicine Cardiovascular Disease
DX: I25.10 Atherosclerotic heart disease of native coronary artery without angina pectoris (principal); I10 Essential (primary) hypertension; E78.5 Hyperlipidemia, unspecified; I65.29 Occlusion and stenosis of unspecified carotid artery; E66.9 Obesity, unspecified
CPT/HCPCS: 78452; 93017; A9502

== ENCOUNTER 2019-12-22 12:48 | Outpatient (RCR) | payer MEDICARE, OTHER ==
[~2019-12-22 12:48] MED LIST changes: -CATHETER FLUSH 10 ML SYR IV PRN; -REGADENOSON 0.4 MG/5 ML SYR (LEXISCAN) IV ONE
== END 2020-03-17 13:02 | disposition home or self-care (01) ==
LOC: ONC 12:48
PROVIDERS: ATTEND Internal Medicine Hematology & Oncology
DX: D50.9 Iron deficiency anemia, unspecified (principal); D72.820 Lymphocytosis (symptomatic); I25.10 Atherosclerotic heart disease of native coronary artery without angina pectoris; I10 Essential (primary) hypertension; E78.5 Hyperlipidemia, unspecified; K90.9 Intestinal malabsorption, unspecified; Z98.1 Arthrodesis status
CPT/HCPCS: 99213

== ENCOUNTER 2020-04-19 13:47 | Outpatient (RCR) | payer MEDICARE, OTHER ==
[~2020-04-19 13:47] MED LIST changes: +FERRIC CARBOXYMALTOSE (CANCER) 750 MG in NS (IVPB) CANCER CENTER 250 ML IV SCH
== END 2020-06-15 | disposition home or self-care (01) ==
LOC: ONC 13:47
PROVIDERS: ATTEND Internal Medicine Hematology & Oncology
DX: Z51.11 Encounter for antineoplastic chemotherapy (principal); D50.9 Iron deficiency anemia, unspecified; D72.820 Lymphocytosis (symptomatic); I25.10 Atherosclerotic heart disease of native coronary artery without angina pectoris; I10 Essential (primary) hypertension; E78.5 Hyperlipidemia, unspecified; K90.9 Intestinal malabsorption, unspecified; Z98.1 Arthrodesis status
CPT/HCPCS: 96365

== ENCOUNTER 2020-06-21 12:51 | Outpatient (RCR) | payer MEDICARE, OTHER ==
[~2020-06-21 12:51] MED LIST changes: -FERRIC CARBOXYMALTOSE (CANCER) 750 MG in NS (IVPB) CANCER CENTER 250 ML IV SCH
[2020-06-29] MEDS ORDERED: AMLO-251 PO (07:45)
[2020-06-29] MEDS ORDERED: IRBE150T23 PO (07:45)
[2020-06-29] MEDS ORDERED: LEVO137T40 PO (07:45)
[2020-06-29] MEDS ORDERED: TRIA1CAP4 PO (07:45)
[2020-06-29] MEDS ORDERED: MELO15TA14 PO (07:45)
[2020-06-29] MEDS ORDERED: MTP100TCR PO (07:45)
== END 2020-09-19 | disposition home or self-care (01) ==
LOC: ONC 12:51
PROVIDERS: ATTEND Internal Medicine Hematology & Oncology
DX: Z51.11 Encounter for antineoplastic chemotherapy (principal); D50.9 Iron deficiency anemia, unspecified; D72.820 Lymphocytosis (symptomatic); I25.10 Atherosclerotic heart disease of native coronary artery without angina pectoris; I10 Essential (primary) hypertension; E78.5 Hyperlipidemia, unspecified; K90.9 Intestinal malabsorption, unspecified; I65.29 Occlusion and stenosis of unspecified carotid artery; Z98.1 Arthrodesis status
CPT/HCPCS: 99213

== ENCOUNTER 2020-06-29 09:00 | Day surgery (SDC) | payer MEDICARE, OTHER ==
[~2020-06-29] VITALS: Ht 157 cm; Wt 89.0 kg
[2020-06-29] VITALS (14 sets, daily range): BP systolic 89–127; BP diastolic 52–79
[2020-06-29] MEDS: NS IV 1000 ML 1,000 ML IV SCH ×2 (07:30→09:28)
[2020-06-29 07:35] LABS: MEAN PLATELET VOLUME 9.9 fL (9.0-12.2); WHITE BLOOD COUNT 10.6 10^3/uL (4.3-11.0)
[2020-06-29 07:49] LABS: PROTHROMBIN TIME PATIENT 13.1 SEC (12.2-14.7)
[2020-06-29 07:53] LABS: ALBUMIN 4.2 GM/DL (3.2-4.5); BILIRUBIN,TOTAL 0.4 MG/DL (0.1-1.0); CALCIUM 9.2 MG/DL (8.5-10.1); CREATININE SERUM 2.14 MG/DL (0.60-1.30); POTASSIUM 3.6 MMOL/L (3.6-5.0)
[~2020-06-29 09:00] MED LIST changes: +AMLO-251 PO; +HEParin (CATH LAB) 2,000 ML IV ONE; +IRBE150T23 PO; +LEVO137T40 PO; +LIDOCAINE 1% INJ 20 ML 20 ML VIAL ONE; +MELO15TA14 PO; +NS IV 1000 ML 1,000 ML ONE; +TRIA1CAP4 PO
[2020-06-29] MEDS ORDERED: fentaNYL INJ 100 MCG/2 ML AMP ONE (09:11)
[2020-06-29] MEDS ORDERED: MIDAZOLAM 5 MG/5 ML (VERSED) VIAL ONE (09:11)
--- NOTE | 2020-06-29 09:29 | Cardiac Procedure Note-CS/ASA ---
Pre-Procedure Note Pre-Op Procedure Note H&P Reviewed The H&P was reviewed, patient examined and no changes noted. Date H&P Reviewed: June 29, 2020 Time H&P Reviewed: 09:29 Conscious Sedation Pre-Proced Time 09:29 ASA Score 3 For ASA 3 and 4: Consider anesthesia and medical clearance. Also, for patients with a history of failed moderate sedation consider anesthesia. Airway Lungs Heart ASA score ASA 1: a normal healthy patient ASA 2: a patient with a mild systemic disease (mid diabetes, controlled hypertension, obesity ASA 3: a patient with a severe systemic disease that limits activity (angina, COPD, prior Myocardial infarction) ASA 4: a patient with an incapacitating disease that is a constant threat to life (CHF, renal failure) ASA 5: a moribund patient not expected to survive 24 hrs. (ruptured aneurysm) ASA 6: a declared brain- patient whose organs are being harvested. For emergent operations, add the letter E after the classification Mallampati Classification Grade 2 Sedation Plan Analgesia, Amnesia, Plan communicated to team members, Discussed options with patient/fam, Discussed risks with patient/fam The patient is an appropriate candidate to undergo the planned procedure, sedation, and anesthesia. The patient immediately re-assessed prior to indication. KARISSA GRULLON MD FACP FAC CCDS June 29, 2020 09:29
--- NOTE | 2020-06-29 10:10 | Discharge Inst-Cardiology ---
Discharge Inst-Cardiac Discharge Medications Continued Medications: Acetaminophen (Tylenol) 325 Mg Tablet 325 MG PO Q6H PRN for PAIN-MILD, TAB Amlodipine Besylate (Amlodipine Besylate) 10 Mg Tablet 10 MG PO DAILY, TAB Aspirin (Aspirin) 81 Mg Tablet 81 MG PO DAILY, TAB Atorvastatin Calcium (Lipitor 40MG) 40 Mg Tablet 40 MG PO DAILY Famotidine (Acid Architectural Intern (FAMOTIDINE)) 20 Mg Tablet 40 MG PO DAILY, TAB Levothyroxine Sodium (Euthyrox) 137 Mcg Tablet 137 MCG PO DAILY, TAB Metoprolol Succinate (Metoprolol Succinate) 100 Mg Tab.er.24h 100 MG PO DAILY, TAB Multivit-Min/FA/Lycopene/Lut (Centrum Silver Tablet) 1 Each Tablet 1 EACH PO DAILY, TAB Nitroglycerin (Nitroglycerin) 0.4 Mg Tab.subl 0.4 MG SL PRN for chest pain, TAB Pantoprazole Sodium (Protonix) 40 Mg Tablet.dr 40 MG PO DAILY, TAB Discontinued Medications: Irbesartan (Irbesartan) 150 Mg Tablet 150 MG PO DAILY, TAB Meloxicam (Mobic) 15 Mg Tablet 15 MG PO EVERY OTHER DAY, TAB Triamterene/Hydrochlorothiazid (Triamterene-Hctz 37.5-25 mg Cp) 1 Each Capsule 1 EACH PO EVERY OTHER DAY, CAP Valsartan (Valsartan) 160 Mg Tablet 160 MG PO DAILY, TAB KARISSA GRULLON MD [facility] CCDS June 29, 2020 10:10
--- NOTE | 2020-06-29 10:11 | Discharge Inst-Post CATH ---
Discharge Inst-CATH/EP Post Cardiac Cath/EP D/C Inst Follow Up/Plan F/u with Dr Field next week ACTIVITY * Go Home directly and rest. * Limit activity of the leg (or wrist if it was used) for 7 days including aerobics, swimming, jogging, bicycling, etc. * Restrict stair-climbing for 7 days if possible, if not, climb up with your no n-cath leg, then bring together on the same step. * Avoid lifting, pushing, pulling or excessive movement of the affected ext remity for 7 days. * Customary sexual activity may be resumed after 2 days-use caution not to use a position that strains or causes pain to the affected extremity. * No driving for 24 hours. * NO SMOKING. * Avoid straining for bowel movements for 7 days. * Gentle walking on level ground is allowed. * Returning to work will depend on the type of procedure and the results. Your doctor will discuss this with you. CALL YOUR DOCTOR FOR ANY OF THE FOLLOWING: *If bleeding from the puncture site occurs- Apply gentle pressure to site with clean cloth and call your doctor or EMS. * If a knot or lump forms under the skin, increases in size, or causes pain. * If bruising appears to be worsening or moving further down your leg instead of disappearing. * Temperature above 101 F. CARE OF YOUR GROIN INCISION; * Bruising or purple discoloration of the skin near the puncture site is common. * You may shower only, no bathtub bathing for 5 days. Be careful to avoid slipping as your leg may feel stiff. * If a closure device was used on your femoral artery, please see the attached guide regarding care of the device and your leg. * Leave dressing on FOR 24 hours. CARE OF YOUR WRIST INCISION; * Bruising or purple discoloration of the skin near the puncture site is common. * You may shower. * DO NOT submerge wrist. * Leave dressing on FOR 24 hours. KARISSA FIELD MD FACP FAC CCDS June 29, 2020 10:11
[2020-06-29] MEDS ORDERED: PATIENT MAY USE OWN MEDS, ALL PO SCH (10:15)
[2020-06-29] MEDS ORDERED: NS IV 1000 ML 1,000 ML IV SCH (10:15)
--- NOTE | 2020-06-29 12:59 | CARDIAC CATHETERIZATION ---
DATE OF SERVICE: 06/29/2020 CARDIAC CATHETERIZATION REPORT The patient is a 70-year-old lady, who has a history of stenting to the left circumflex and to an obtuse marginal several years ago. This was done at [facility] in [place], [place]. She states that she has had recurrence of chest discomfort that is similar to what she was experiencing prior to her stenting several years ago. Accordingly, because of symptoms suggestive of unstable angina, cardiac catheterization was carried out after having obtained an informed consent. DESCRIPTION OF PROCEDURE: She was brought to the cardiac catheterization laboratory. Prior to initiation of the procedure, she had received 1 liter of normal saline because of her renal insufficiencies that is indicative of chronic kidney disease stage IV. We used the Modified Seldinger technique to advance a 5-Korean sheath into the right femoral artery. We used a 5-Korean JL4 catheter for left coronary angiography. 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 We were not successful with that. We used a pigtail for left heart catheterization. We did not perform left ventricular angiography. This was to save contrast. We put the pigtail in the ascending aorta and did a 5 mL of contrast injection with 1:1 dilution with normal saline. This injection was performed by hand. This did outline the entire right coronary artery, including its origin. The right coronary artery do not exhibit significant disease. The catheter was removed. Angiography of the right femoral artery was carried out through the sheath. Mynx was used to achieve hemostasis. The total amount of contrast used for the study was 20 mL. The patient tolerated the procedure well. Vigorous perioperative hydration was carried out prior to the procedure, during the procedure, and is being continued after the procedure. HEMODYNAMICS: Left ventricular end-diastolic pressure following coronary angiography was 14 mmHg. There was no significant pressure gradient on pullback across the aortic valve. CORONARY ANGIOGRAPHY: Left main coronary artery is free of significant disease. Left anterior descending artery has mild plaques. The left circumflex artery is codominant and has a patent stent that is known to be 2.5 x 8 mm stent in its proximal portion and an obtuse marginal branch has a patent stent that is known to be 2.5 x 12 mm stent. No significant stent restenosis is seen. CONCLUSIONS: 1. Mild coronary artery disease. Patent stents in the left circumflex (2.5 x 8) and an obtuse marginal (2.5 x 12). 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 2. Left ventricular end-diastolic pressure is 14 mmHg. DISCUSSION AND RECOMMENDATIONS: Based on results of the study, chest discomfort does not appear to be of coronary origin. We did provide vigorous perioperative hydration to reduce risk of contrast nephropathy. In looking at her medication regimen, we noticed that she is on two Angiotensin receptor blockers (valsartan and irbesartan). We have advised that she discontinue both of these. She is on a nonsteroidal anti-inflammatory agent (meloxicam). We advised that she discontinue that. She is also on diuretics, which may be causing a prerenal component to renal disease. Accordingly, we have asked her to stop taking that, as well. Close clinical followup is advised. Job ID: [id number] DocumentID: [id number] Dictated Date: 06/29/2020 10:26:53 Movie Shot Camera Operator Date: 06/29/2020 12:59:08 Dictated By: KARISSA GRULLON MD, MA, FACP, FACC,
== END 2020-06-29 17:15 | disposition home or self-care (01) ==
LOC: CATH 09:00 → SDC 10:28 → CATH 17:15
PROVIDERS: ATTEND Internal Medicine Cardiovascular Disease
DX: I25.10 Atherosclerotic heart disease of native coronary artery without angina pectoris (principal); G89.29 Other chronic pain; E78.5 Hyperlipidemia, unspecified; K21.9 Gastro-esophageal reflux disease without esophagitis; I10 Essential (primary) hypertension; D64.9 Anemia, unspecified; D50.9 Iron deficiency anemia, unspecified; I65.23 Occlusion and stenosis of bilateral carotid arteries; E83.42 Hypomagnesemia; E66.9 Obesity, unspecified; Z68.36 Body mass index [BMI] 36.0-36.9, adult; Z95.5 Presence of coronary angioplasty implant and graft; Z79.899 Other long term (current) drug therapy; Z79.82 Long term (current) use of aspirin; Z80.9 Family history of malignant neoplasm, unspecified; Z82.49 Family history of ischemic heart disease and other diseases of the circulatory system
CPT/HCPCS: 80053; 80061; 85027; 85610; 85730; 87081; 93458; 93567; C1760; C1894; 36415

== ENCOUNTER 2020-07-12 05:41 | Outpatient (RCR) | payer MEDICARE, OTHER ==
[~2020-07-12] VITALS: Ht 157.5 cm; Wt 89.0 kg
[~2020-07-12 05:41] MED LIST changes: -HEParin (CATH LAB) 2,000 ML IV ONE; -LIDOCAINE 1% INJ 20 ML 20 ML VIAL ONE; -NS IV 1000 ML 1,000 ML ONE
== END 2020-07-15 13:46 | disposition home or self-care (01) ==
LOC: PREOP 05:41 → EDSTATUS 10:15 → PREOP 07-15 13:46
PROVIDERS: ATTEND Surgery
DX: Z01.812 Encounter for preprocedural laboratory examination (principal); R13.10 Dysphagia, unspecified; Z20.822 Contact with and (suspected) exposure to COVID-19
CPT/HCPCS: 87635

== ENCOUNTER 2020-07-19 08:53 | Day surgery (SDC) | payer MEDICARE, OTHER ==
[2020-07-19] MEDS ORDERED: LACTATED RINGERS 1,000 ML IV ONE (08:54)
[2020-07-19 09:10] VITALS: BP 123/81
[2020-07-19] MEDS ORDERED: HURRICAINE EXT TUBE (BENZOCAINE) XX PRN (09:15)
[2020-07-19] MEDS ORDERED: LACTATED RINGERS 1,000 ML IV SCH (09:30)
--- NOTE | 2020-07-19 09:52 | Progress Note-Pre Operative ---
Pre-Operative Progress Note H&P Reviewed The H&P was reviewed, patient examined and no changes noted. Time Seen by Provider: 09:50 Date H&P Reviewed: July 19, 2020 Time H&P Reviewed: 09:50 Pre-Operative Diagnosis: Dysphagia LUCILLE WEINEBRG DO July 19, 2020 09:52
[2020-07-19] MEDS ORDERED: proPOfol 200 MG/20 ML (DIPRIVAN) VIAL IV ONE (09:59)
[2020-07-19] MEDS ORDERED: MIDAZOLAM 2 MG/2 ML (VERSED) VIAL ONE (10:30)
[2020-07-19 10:45] VITALS: BP 114/68
--- NOTE | 2020-07-19 10:46 | Progress Note-Post Operative ---
Post-Operative Progess Note Surgeon (s)/Knitting Machine Operator Automatic (s) Surgeon LUCILLE WEINBERG DO Knitting Machine Operator Automatic: none Pre-Operative Diagnosis Dysphagia Post-Operative Diagnosis same plus Esophagitis Hiatal hernia - large gastritis Procedure & Operative Findings Date of Procedure 07/19/20 Procedure Performed/Findings PROCEDURE NOTE: After informed consent was obtained, the patient was brought to the endoscopy suite, placed in bed in left lateral decubitus position. She was administered IV sedation by the PACKAGE DELIVERY ROOM SERVICE RUNNER who then monitored her vitals the entire time, heart rate, blood pressure and pulse ox and the scope was inserted down the mouth through the esophagus into the stomach. On the way down, noted some moderate esophagitis, took a picture, pushed into the stomach, pushed past the antrum into the duodenum. Duodenum looked good. Pulled back and did a biopsy of antrum, then retroflexed the scope, saw a large hiatal hernia, took a picture of this and then pulled the scope into the GE junction, took another picture of the hiatal hernia and then did a biopsy of the GE junction. Pushed the scope back into the stomach, suctioned all the air out of the stomach and then pulled the scope up the esophagus, took some pictures in the esophagus. There were no ulcers and no stricture; at this point pulled the scope up the esophagus and out the mouth. The patient tolerated the procedure, and she recovered in endoscopy suite. Anesthesia Type IV sedation by PACKAGE DELIVERY ROOM SERVICE RUNNER Estimated Blood Loss Estimated blood loss (mL): scant Specimens/Packing Specimens Removed antral bx GE jxn bx LUCILLE WEINBERG DO July 19, 2020 10:46
--- NOTE | 2020-07-19 10:47 | Endoscopy Discharge Instruct ---
Endo Procedure/Findings Findings 1.: Other Findings (Esophagitis) 2.: Hiatal Hernia (huge) 3.: Gastritis Discharge Instructions - Activity: You might feel a little sleepy until tomorrow. This is due to the medicine you received to relax you. Until tomorrow, you should: NOT drive a car, operate machinery or power tools. NOT drink any alcoholic beverages. NOT make any important decisions or sign importortant papers. Do not return to work until tomorrow, unless otherwise instructed. Resume previous activities tomorrow. Diet: Start by taking liquids. If you tolerate liquids, advance to solid food. 1.: EGD in 1 year Notify Physician - If you experience excessive bleeding, unusual abdominal pain, fever, or chest pain, contact your doctor immediately. LUCILLE WEINBERG DO July 19, 2020 10:47
--- NOTE | 2020-07-19 10:49 | Anesthesia-General Post-Op ---
MAC Patient Condition Mental Status/LOC: Same as Preop Cardiovascular: Satisfactory Nausea/Vomiting: Absent Respiratory: Satisfactory Pain: Controlled Complications: Absent Post Op Complications Complications None Follow Up Care/Instructions Patient Instructions None needed. Anesthesiology Discharge Order Discharge Order Patient is doing well, no complaints, stable vital signs, no apparent adverse anesthesia problems. No complications reported per nursing. MILLICENT ALCALA CRNA July 19, 2020 10:49
[2020-07-19 10:50] VITALS: BP 117/65
[2020-07-19 10:55] VITALS: BP 117/65
[2020-07-19 11:15] VITALS: BP 121/74
[2020-07-19 11:20] VITALS: BP 121/74
== END 2020-07-19 11:20 | disposition home or self-care (01) ==
LOC: ENDO 08:53
PROVIDERS: ATTEND Surgery
DX: K29.50 Unspecified chronic gastritis without bleeding (principal); K21.00 Gastro-esophageal reflux disease with esophagitis, without bleeding; K44.9 Diaphragmatic hernia without obstruction or gangrene; I10 Essential (primary) hypertension; I25.10 Atherosclerotic heart disease of native coronary artery without angina pectoris; K21.9 Gastro-esophageal reflux disease without esophagitis; E78.5 Hyperlipidemia, unspecified; E83.42 Hypomagnesemia; D50.9 Iron deficiency anemia, unspecified; I65.23 Occlusion and stenosis of bilateral carotid arteries; E66.9 Obesity, unspecified; Z68.36 Body mass index [BMI] 36.0-36.9, adult; Z79.890 Hormone replacement therapy; Z79.899 Other long term (current) drug therapy; Z79.82 Long term (current) use of aspirin
CPT/HCPCS: 88305

== ENCOUNTER 2020-09-28 15:02 | Observation (INO) | payer MEDICARE, OTHER ==
[~2020-09-28] VITALS: Ht 160 cm; Wt 80.3 kg
[2020-09-28] MEDS ORDERED: fentaNYL INJ 100 MCG/2 ML AMP IVP PRN (15:15)
[2020-09-28] MEDS ORDERED: NS IV 1000 ML 1,000 ML IV SCH (15:15)
[2020-09-28] MEDS ORDERED: PANTOPRAZOLE 40 MG (PROTONIX) TAB PO ONE (15:15)
[2020-09-28] MEDS ORDERED: ONDANSETRON 4 MG/2 ML (SDV) Z0FRAN IVP PRN ×2 (15:15→20:30)
[2020-09-28 16:00] VITALS: BP 154/96
[2020-09-28] MEDS: NS IV 1000 ML 1,000 ML IV SCH (16:49)
--- NOTE | 2020-09-28 17:38 | Diagnostic Imaging Report ---
INDICATION: Left lower quadrant pain. TIME OF EXAM: 04:58 p.m. FINDINGS: The heart size is normal. There is a large hiatal hernia. Lungs are clear. No free air is detected. Bowel gas pattern appears nonobstructed. There is moderate stool in the transverse and descending colon. There are postop changes with instrumentation in the lower lumbar spine. No pathologic calcifications are seen. IMPRESSION: 1. No acute abnormality is detected. 2. Moderate-sized hiatal hernia. Dictated by: Dictated on workstation # [id number]
--- NOTE | 2020-09-28 18:13 | Consultation - Surgery ---
History of Present Illness History of Present Illness Patient Consulted On(ted/time) 09/28/20 18:07 Time Seen by Provider: 16:59 History of Present Illness Surgery is asked to consult regarding abdominal pain. HPI: Pt is a 70 yo female who states she has been having pain since last Sunday. She stated the pain started in the morning and "it was severe, couldn't do anything for first 2 days". Slowly pain got a little better, but she still has the pain today. States her convinced her to call her doctor, was trying to get her to go the ER. She describes pain that starts in the LLQ and goes up into the LUQ. Achey pain, constant and sometimes sharp. It was associated with loss of appetite and not moving helped. She has been a little constipated, had one episode of diarrhea on Sunday and nothing since then. She denied any melena or hematochezia and no problems with urination. She denies emesis and maybe has had some mild nausea. Allergies and Home Medications Allergies Coded Allergies: No Known Drug Allergies (Unverified , 09/28/20) Home Medications Acetaminophen 325 Mg Tablet, 325 MG PO Q6H PRN for PAIN-MILD, (Reported) Amlodipine Besylate 10 Mg Tablet, 10 MG PO DAILY, (Reported) Aspirin 81 Mg Tablet, 81 MG PO DAILY, (Reported) Atorvastatin Calcium 40 Mg Tablet, 40 MG PO DAILY, (Reported) Famotidine 20 Mg Tablet, 40 MG PO DAILY, (Reported) Levothyroxine Sodium 137 Mcg Tablet, 137 MCG PO DAILY, (Reported) Metoprolol Succinate 100 Mg Tab.er.24h, 100 MG PO DAILY, (Reported) Multivit-Min/FA/Lycopene/Lut 1 Each Tablet, 1 EACH PO DAILY, (Reported) Nitroglycerin 0.4 Mg Tab.subl, 0.4 MG SL PRN, (Reported) Pantoprazole Sodium 40 Mg Tablet.dr, 40 MG PO DAILY, (Reported) Patient Home Medication List Home Medication List Reviewed: Yes Past Ipxnwdg-Amxero-Xltuhx Hx Patient Social History Smoking Status: Never a Smoker 2nd Hand Smoke Exposure: No Recent Hopitalizations: No Alcohol Use?: Yes Have you traveled recently?: No Immunizations Up To Date Tetanus Booster (TDap): Less than 5yrs Date of Influenza Vaccine: Jan 02, 2020 Seasonal Allergies Seasonal Allergies: No Surgeries History of Surgeries: Yes (BACK, HEART CATHX2-ANGIOPLASTY&STENT) Surgeries: Hysterectomy Respiratory History of Respiratory Disorde: No Cardiovascular History of Cardiac Disorders: Yes (STENTS/ANGIOPLASTYX2) Cardiac Disorders: Coronary Artery Disease, Hypertension Neurological History of Neurological Disord: No Reproductive System Hx Reproductive Disorders: No Sexually Transmitted Disease: No Genitourinary History of Genitourinary Disor: No Gastrointestinal History of Gastrointestinal Di: Yes Gastrointestinal Disorders: Gastroesophageal Reflux, Diverticulosis Musculoskeletal History of Musculoskeletal Dis: No Endocrine History of Endocrine Disorders: Yes Endocrine Disorders: Hypothyroidsim HEENT History of HEENT Disorders: No Cancer History of Cancer: No Psychosocial History of Psychiatric Problem: No Integumentary History of Skin or Integumenta: No Blood Transfusions History of Blood Disorders: No Adverse Reaction to a Blood Tr: No Family Medical History Significant Family History: Heart Disease, CAD Over 55 Years Old Review of Systems-General Constitutional: No diaphoresis; malaise, weakness EENTM: No blurred vision, No double vision, No mouth pain, No mouth swelling, No epistaxis Respiratory: No cough, No dyspnea on exertion Cardiovascular: No chest pain, No palpitations Gastrointestinal: abdominal pain (LUQ); No dysphagia, No hematemesis; loss of appetite; No melena; nausea; No vomiting Genitourinary: No dysuria, No frequency, No hematuria Musculoskeletal: joint pain, joint swelling, muscle stiffness Skin: No change in color, No change in hair/nails Psychiatric/Neurological: Denies Anxiety, Denies Depressed, Denies Seizure, Denies Tremors Other pt denies any hx of abnormal bleeding or bruising Physical Exam-General Problems Physical Exam Vital Signs Vital Signs - First Documented 09/28/20 16:00 Temp 36.6 Pulse 90 Resp 18 B/P (MAP) 154/96 (115) Pulse Ox 95 O2 Delivery Room Air Capillary Refill : General Appearance: WD/WN, no apparent distress Eyes: Bilateral Eye PERRL, Bilateral Eye EOMI HEENT: pharynx normal; No scleral icterus (R), No scleral icterus (L) Neck: non-tender, supple Respiratory: chest non-tender, lungs clear, normal breath sounds, no respiratory distress, no accessory muscle use Cardiovascular: regular rate, rhythm, no murmur Gastrointestinal: soft, guarding (voluntary on left side), tenderness; No hernia Rectal: deferred Back: no CVA tenderness, no vertebral tenderness Extremities: no pedal edema, no calf tenderness, normal capillary refill Neurologic/Psychiatric: manager ui II-XII nml as tested, alert, normal mood/affect, oriented x 3 Skin: normal color, warm/dry Lymphatic: no adenopathy (neck, axilla or groin) Assessment/Plan Assessment/Plan Assessment/Plan Left sided Abd pain CAD Hx of GERD Hiatal hernia Plan is labs, IV fluids, pain meds and anti-emetics as needed. Pt may need CT depending on her labs. Right now it could be anything from pancreatitis, UTI or pyelonephritis and even Diverticulitis. She had an acute Abd series; that I reviewed myself. I can see her hiatal hernia, she has a lot of retained fecal material in the colon; but no free air. Will follow along and monitor her abdominal exam. I think she is probably ok, but she has been getting better since it started and not worse. She is Afebrile as well. LUCILLE WEINBERG DO Sep 28, 2020 18:13
[2020-09-28 19:36] VITALS: BP 117/78
[2020-09-28 19:36] LABS: BASOPHILS # (AUTO) 0.1 10^3/uL (0.0-0.1); BASOPHILS % (AUTO) 1 % (0-10); EOSINOPHILS % (AUTO) 1 % (0-10); HEMATOCRIT 39 % (35-52); HEMOGLOBIN 13.5 g/dL (11.5-16.0); LYMPHOCYTES # (AUTO) 2.3 10^3/uL (1.0-4.0); LYMPHOCYTES % (AUTO) 29 % (12-44); MEAN CORPUSCULAR HEMOGLOBIN 31 pg (25-34); MEAN CORPUSCULAR HGB CONC 34 g/dL (32-36); MEAN CORPUSCULAR VOLUME 90 fL (80-99); MEAN PLATELET VOLUME 9.7 fL (9.0-12.2); MONOCYTES # (AUTO) 0.6 10^3/uL (0.0-1.0); MONOCYTES % (AUTO) 8 % (0-12); NEUTROPHILS % (AUTO) 62 % (42-75); PLATELET COUNT 284 10^3/uL (130-400); WHITE BLOOD COUNT 8.1 10^3/uL (4.3-11.0)
[2020-09-28 19:55] LABS: ERYTHROCYTE SEDIMENTATION RATE 41 MM/HR (0-30)
[2020-09-28 20:10] LABS: ALBUMIN 3.3 GM/DL (3.2-4.5); BILIRUBIN,TOTAL 0.3 MG/DL (0.1-1.0); CALCIUM 8.5 MG/DL (8.5-10.1); CREATININE SERUM 0.94 MG/DL (0.60-1.30); POTASSIUM 2.8 MMOL/L (3.6-5.0); TOTAL PROTEIN 7.2 GM/DL (6.4-8.2)
[2020-09-28] MEDS ORDERED: HYDROcodone/APAP 5 MG/325 MG (LORTAB) TAB PO PRN (20:30)
[2020-09-28] MEDS ORDERED: MAGNESIUM 1 GM/100 ML IVPB 100 ML IV ONE (20:30)
[2020-09-28] MEDS ORDERED: diphenhydrAMINE 25 MG TAB (BENADRYL) PO PRN (20:30)
[2020-09-28] MEDS ORDERED: MELATONIN 3 MG TABLET PO PRN (20:30)
[2020-09-28] MEDS ORDERED: CALCIUM CARBONATE 500 MG (TUMS) TAB.CHEW PO PRN (20:30)
[2020-09-28] MEDS ORDERED: DOCUSATE SODIUM 100 MG (COLACE) CAP PO PRN (20:30)
[2020-09-28] MEDS ORDERED: ALPRAZolam 0.25 MG (XANAX) TAB PO PRN (20:30)
[2020-09-28] MEDS ORDERED: ACETAMINOPHEN 500 MG TAB (TYLENOL) PO PRN (20:30)
[2020-09-28] MEDS ORDERED: LACTULOSE SYRUP 10GM/15ML (ENULOSE) 30ML UDC PO PRN (20:30)
[2020-09-28 20:38] LABS: BILIRUBIN,URINE NEGATIVE (NEGATIVE); CLARITY,URINE CLEAR; COLOR,URINE YELLOW; GLUCOSE, URINE (UA) NEGATIVE (NEGATIVE); KETONES,URINE TRACE (NEGATIVE); LEUKOCYTE ESTERASE ,URINE NEGATIVE (NEGATIVE); NITRITE,URINE NEGATIVE (NEGATIVE); PROTEIN,URINE NEGATIVE (NEGATIVE)
[2020-09-28 20:44] LABS: BACTERIA,URINE TRACE /HPF; HYALINE CASTS, URINE 0-2 /LPF; SQUAMOUS EPITHELIAL CELL,UR 0-2 /HPF
[2020-09-28] MEDS: polyethylene glycoL POWDER 17 GM (MIRALAX) PACK PO SCH (21:05)
[2020-09-28] MEDS: SENNA W/DOCUSATE (SENOKOT S) TABLET PO SCH (21:05)
[2020-09-28] MEDS: ENOXAPARIN 40 MG/0.4 ML (LOVENOX) SYR SC SCH (21:05)
[2020-09-28] MEDS: POTASSIUM CL 10MEQ/50ML IVPB 50 ML IV SCH (21:06)
[2020-09-28] MEDS ORDERED: IOHEXOL 350 MG/ML 100 ML (OMNIPAQUE 350) VIAL IV ONE (23:00)
[2020-09-28] MEDS ORDERED: NS 100 ML (IVPB) BAG IV ONE (23:00)
[2020-09-28] MEDS ORDERED: DIATRIZOATE MEGLUM/SODIUM 37% 120 ML (GASTROGRAFIN) PO ONE (23:00)
[2020-09-28] MEDS ORDERED: HOLD METFORMIN - RECEIVED CONTRAST 20 ML VIAL IV SCH (23:00)
--- NOTE | 2020-09-28 23:23 | Diagnostic Imaging Report ---
EXAMINATION: CT abdomen and pelvis with intravenous contrast. TECHNIQUE: Multiple contiguous axial images were obtained through the abdomen and pelvis after the uneventful administration of intravenous contrast. All CT scans use one or more of the following dose optimizing techniques: automated exposure control, MA and/or KvP adjustment based on patient size and exam type or iterative reconstruction. HISTORY: Abdominal pain COMPARISON: None available. FINDINGS: Limited views of the lower thorax are unremarkable. The liver is normal without focal lesion. There is no biliary ductal dilation. Gallbladder is normal. Pancreas is normal. Spleen is normal. Adrenal glands are normal. The kidneys are normal. There is no hydronephrosis. Urinary bladder is normal. There is diverticulosis with wall thickening of sigmoid colon likely related to chronic diverticular disease. No leakage of contrast is seen. No evidence of obstruction. No free fluid or air. No abdominal or pelvic lymphadenopathy. Aorta is normal in caliber without aneurysm. There are no suspicious osseus lesions. IMPRESSION: 1. Findings of chronic diverticular disease of the sigmoid colon without acute bowel inflammation seen. Dictated by: Dictated on workstation # [id number]
[2020-09-28 23:43] VITALS: BP 121/69
[2020-09-29] MEDS: POTASSIUM CL 10MEQ/50ML IVPB 50 ML IV SCH ×3 (00:18→04:17)
[2020-09-29 03:37] VITALS: BP 116/79
[2020-09-29] MEDS: NS IV 1000 ML 1,000 ML IV SCH ×3 (04:18→16:50)
[2020-09-29 06:35] LABS: BASOPHILS # (AUTO) 0.1 10^3/uL (0.0-0.1); BASOPHILS % (AUTO) 1 % (0-10); EOSINOPHILS # (AUTO) 0.1 10^3/uL (0.0-0.3); EOSINOPHILS % (AUTO) 1 % (0-10); HEMATOCRIT 40 % (35-52); HEMOGLOBIN 13.9 g/dL (11.5-16.0); LYMPHOCYTES # (AUTO) 3.3 10^3/uL (1.0-4.0); LYMPHOCYTES % (AUTO) 38 % (12-44); MEAN CORPUSCULAR HEMOGLOBIN 31 pg (25-34); MEAN CORPUSCULAR HGB CONC 35 g/dL (32-36); MEAN CORPUSCULAR VOLUME 90 fL (80-99); MEAN PLATELET VOLUME 9.9 fL (9.0-12.2); MONOCYTES # (AUTO) 0.9 10^3/uL (0.0-1.0); MONOCYTES % (AUTO) 10 % (0-12); NEUTROPHILS # (AUTO) 4.3 10^3/uL (1.8-7.8); NEUTROPHILS % (AUTO) 49 % (42-75); PLATELET COUNT 334 10^3/uL (130-400); WHITE BLOOD COUNT 8.8 10^3/uL (4.3-11.0)
[2020-09-29 06:39] LABS: ALBUMIN 3.5 GM/DL (3.2-4.5); BILIRUBIN,TOTAL 0.3 MG/DL (0.1-1.0); CALCIUM 9.1 MG/DL (8.5-10.1); CREATININE SERUM 0.79 MG/DL (0.60-1.30); MAGNESIUM 2.4 MG/DL (1.6-2.4); POTASSIUM 3.2 MMOL/L (3.6-5.0); TOTAL PROTEIN 7.4 GM/DL (6.4-8.2)
--- NOTE | 2020-09-29 07:49 | Progress Note - Surgery ---
LEÓN GONZALEZ 09/29/20 0749: Subjective Date Seen by a Provider: Sep 29, 2020 Time Seen by a Provider: 07:47 Subjective/Events-last exam pt resting in bed, had BM last night, feeling better but still reports 2/10 tendernes on LUQ and LLQ Review of Systems General: No Chills, No Night Sweats HEENT: No Head Aches, No Visual Changes Pulmonary: No Dyspnea, No Cough Cardiovascular: No: Chest Pain, Palpitations Gastrointestinal: Abdominal Pain; No: Nausea, Vomiting Musculoskeletal: No: other, neck pain, shoulder pain, arm pain, back pain, hand pain, leg pain, foot pain Neurological: No: Weakness, Numbness, Change in speech Focused Exam Respiratory: Lungs Clear, Normal Breath Sounds Cardiovascular: Regular Rate, Rhythm, No Edema, Normal Peripheral Pulses Peripheral Pulses: 2+ Radial Pulses (R), 2+ Radial Pulses (L) Skin: normal color, warm/dry Objective Exam Vital Signs Date Time Temp Pulse Resp B/P (MAP) Pulse Ox O2 Delivery O2 Flow Rate FiO2 09/29/20 03:37 36.0 89 20 116/79 (91) 96 Room Air 09/28/20 23:43 36.3 96 20 121/69 (86) 93 Room Air 09/28/20 20:59 Room Air 09/28/20 19:36 36.4 92 20 117/78 (91) 96 Room Air 09/28/20 17:24 95 Room Air 09/28/20 16:00 36.6 90 18 154/96 (115) 95 Room Air I & O 09/29/20 07:00 Intake Total 2420 ml Output Total 1475 ml Balance 945 ml Capillary Refill : General Appearance: No Apparent Distress, WD/WN HEENT: Pharynx Normal, Moist Mucous Membranes Neck: Non Tender, Supple Respiratory: Chest Non Tender, Lungs Clear, Normal Breath Sounds, No Accessory Muscle Use, No Respiratory Distress Cardiovascular: Regular Rate, Rhythm, No Gallop, No Murmur, Normal Peripheral Pulses Peripheral Pulses: 2+ Radial Pulses (R), 2+ Radial Pulses (L) Gastrointestinal: soft, guarding (voluntary on left side), tenderness; No hernia Extremity: Normal Capillary Refill Neurologic/Psychiatric: Alert, Oriented x3 Skin: Normal Color, Warm/Dry Results Lab Laboratory Tests 09/28/20 19:30: White Blood Count 8.1, Red Blood Count 4.34, Hemoglobin 13.5, Hematocrit 39, Mean Corpuscular Volume 90, Mean Corpuscular Hemoglobin 31, Mean Corpuscular Hemoglobin Concent 34, Red Cell Distribution Width 11.2, Platelet Count 284, Mean Platelet Volume 9.7, Immature Granulocyte % (Auto) 1, Neutrophils (%) (Auto) 62, Lymphocytes (%) (Auto) 29, Monocytes (%) (Auto) 8, Eosinophils (%) (Auto) 1, Basophils (%) (Auto) 1, Neutrophils # (Auto) 5.0, Lymphocytes # (Auto) 2.3, Monocytes # (Auto) 0.6, Eosinophils # (Auto) 0.0, Basophils # (Auto) 0.1, I mmature Granulocyte # (Auto) 0.0, Erythrocyte Sedimentation Rate 41H, Sodium Level 135, Potassium Level 2.8L, Chloride Level 99, Carbon Dioxide Level 24, Anion Gap 12, Blood Urea Nitrogen 13, Creatinine 0.94, Estimat Glomerular Filtration Rate 59, BUN/Creatinine Ratio 14, Glucose Level 171H, Calcium Level 8.5, Corrected Calcium 9.1, Magnesium Level 1.2L, Total Bilirubin 0.3, Aspartate Amino Transf (AST/SGOT) 21, Alanine Aminotransferase (ALT/SGPT) 19, Alkaline Phosphatase 65, C-Reactive Protein High Sensitivity 1.72H, Total Protein 7.2, Albumin 3.3, Amylase Level 84, Lipase 34 09/28/20 20:20: Urine Color YELLOW, Urine Clarity CLEAR, Urine pH 6.0, Urine Specific [place] <=1.005, Urine Protein NEGATIVE, Urine Glucose (UA) NEGATIVE, Urine Ketones TRACEH, Urine Nitrite NEGATIVE, Urine Bilirubin NEGATIVE, Urine Urobilinogen 0.2, Urine Leukocyte Esterase NEGATIVE, Urine RBC (Auto) NEGATIVE, Urine RBC NONE, Urine WBC NONE, Urine Squamous Epithelial Cells 0-2, Urine Crystals NONE, Urine Bacteria TRACE, Urine Casts PRESENT, Urine Hyaline Casts 0-2H, Urine Mucus NEGATIVE, Urine Culture Indicated NO 09/29/20 06:00: White Blood Count 8.8, Red Blood Count 4.45, Hemoglobin 13.9, Hematocrit 40, Mean Corpuscular Volume 90, Mean Corpuscular Hemoglobin 31, Mean Corpuscular Hemoglobin Concent 35, Red Cell Distribution Width 11.4, Platelet Count 334, Mean Platelet Volume 9.9, Immature Granulocyte % (Auto) 1, Neutrophils (%) (Auto) 49, Lymphocytes (%) (Auto) 38, Monocytes (%) (Auto) 10, Eosinophils (%) (Auto) 1, Basophils (%) (Auto) 1, Neutrophils # (Auto) 4.3, Lymphocytes # (Auto) 3.3, Monocytes # (Auto) 0.9, Eosinophils # (Auto) 0.1, Basophils # (Auto) 0.1, Immature Granulocyte # (Auto) 0.1, Sodium Level 135, Potassium Level 3.2L, Chloride Level 101, Carbon Dioxide Level 22, Anion Gap 12, Blood Urea Nitrogen 10, Creatinine 0.79, Estimat Glomerular Filtration Rate 72, BUN/Creatinine Ratio 13, Glucose Level 106H, Calcium Level 9.1, Corrected Calcium 9.5, Magnesium Level 2.4, Total Bilirubin 0.3, Aspartate Amino Transf (AST/SGOT) 22, Alanine Aminotransferase (ALT/SGPT) 20, Alkaline Phosphatase 68, Total Protein 7.4, Albumin 3.5 Assessment/Plan Assessment/Plan Assessment/Plan Left sided Abd pain CAD Hx of GERD Hiatal hernia Plan is labs, IV fluids, pain meds and anti-emetics as needed. Pt may need CT depending on her labs. Right now it could be anything from pancreatitis, UTI or pyelonephritis and even Diverticulitis. She had an acute Abd series; that I reviewed myself. I can see her hiatal hernia, she has a lot of retained fecal material in the colon; but no free air. Will follow along and monitor her abdominal exam. I think she is probably ok, but she has been getting better since it started and not worse. She is Afebrile as well. A - left side Abd pain - suspect diverticulitis P- Rest and fluids, amylase/lypase to RO pancreatitis JERMAINE COONEY DO 09/29/20 1403: Subjective Time Seen by a Provider: 13:16 Subjective/Events-last exam Pt seen and examined, states still has pain but it is better. She is eating without diffculty. Review of Systems General: No Night Sweats Pulmonary: No Dyspnea, No Cough Cardiovascular: No: Chest Pain, Palpitations Gastrointestinal: Abdominal Pain; No: Nausea, Vomiting Objective Exam General Appearance: No Apparent Distress, WD/WN Respiratory: Chest Non Tender, Lungs Clear, Normal Breath Sounds, No Accessory Muscle Use, No Respiratory Distress Cardiovascular: Regular Rate, Rhythm, No Murmur Gastrointestinal: soft, guarding (voluntary on left side), tenderness; No hernia Neurologic/Psychiatric: Alert, Oriented x3 Skin: Normal Color, Warm/Dry Assessment/Plan Assessment/Plan Assessment/Plan Left sided Abd pain - improved Hypokalemia CAD Hx of GERD Hiatal hernia Labs were basically normal, WBC not elevated and CT did not show any acute inflammation or process. Pt does not need surgical intervention at this time. Her main complaint is that she doesn't have appetite, food doesn't taste good and she has lost 33 lbs in past few months. I will see her in my office. Supervisory-Addendum Brief Verification & Attestation Participated in pt care: history, MDM, physical Personally performed: exam, history, MDM, supervision of care Care discussed with: Medical Student Procedures: n/a Verification and Attestation of Medical Student E/M Service A medical student performed and documented this service. I then reviewed and verified all information documented by the medical student and made modifications to such information, when appropriate. I personally performed a physical exam, medical decision making and then discussed any differences between the notes and made revisions as necessary to create one note. Jermaine Cooney , 09/29/20 , 14:03 LEÓN GONZALEZ Sep 29, 2020 07:49 JERMAINE COONEY DO Sep 29, 2020 14:03
[2020-09-29 08:05] VITALS: BP 123/68
[2020-09-29] MEDS: polyethylene glycoL POWDER 17 GM (MIRALAX) PACK PO SCH ×2 (08:27→20:05)
[2020-09-29] MEDS: SENNA W/DOCUSATE (SENOKOT S) TABLET PO SCH ×2 (08:27→20:05)
[2020-09-29] MEDS ORDERED: PANTOPRAZOLE 40 MG (PROTONIX) TAB PO SCH (09:00)
[2020-09-29] MEDS ORDERED: PANT40TA52 PO (09:14)
[2020-09-29] MEDS ORDERED: DOCU100C37 PO (09:14)
[2020-09-29] MEDS ORDERED: ASPI-1238 PO (09:14)
[2020-09-29] MEDS ORDERED: ATOR40TA70 PO (09:14)
[2020-09-29] MEDS ORDERED: FAMO40TA6 PO (09:14)
[2020-09-29] MEDS ORDERED: KCL 20 MEQ TAB (K-DUR) PO ONE (10:45)
[2020-09-29] MEDS ORDERED: ACETAMINOPHEN 325 MG TABLET PO PRN (11:00)
[2020-09-29 11:40] VITALS: BP 139/69
--- NOTE | 2020-09-29 15:00 | History & Physical ---
DIXON SALAZAR 09/29/20 1500: History of Present Illness History of Present Illness Reason for visit/HPI Page Lloyd is a 70yo F presents with constant, sharp LLQ/LUQ abdominal pain w/ weight loss and dehydration onset 8 days ago. Pt states it's worse with walking and alleviates with resting/laying down. Pt denies any radiation. Last Bowel movement 30min ago. Looking to get discharged to attend her granddaughters wedding this weekend. Date of Admission Sep 28, 2020 at 15:24 Time Seen by a Provider: 15:46 I consulted on this patient on 09/29/20 14:55 Attending Physician Shirley Dey DO Admitting Physician Shirley Dey DO Consult Allergies and Home Medications Allergies Coded Allergies: No Known Drug Allergies (Unverified , 09/28/20) Home Medications Acetaminophen 325 Mg Tablet, 325-650 MG PO Q6H PRN for PAIN-MILD (1-4), (Reported) Last Action: Continued Amlodipine Besylate 10 Mg Tablet, 10 MG PO DAILY, (Reported) Last Action: Held Aspirin 81 Mg Tablet.dr, 81 MG PO HS, (Reported) Last Action: Continued Atorvastatin Calcium 40 Mg Tablet, 40 MG PO HS, (Reported) Last Action: Held Docusate Sodium 100 Mg Capsule, 100-200 MG PO BID PRN for CONSTIPATION-1ST LINE, (Reported) Last Action: Held Famotidine 40 Mg Tablet, 40 MG PO DAILY, (Reported) Last Action: Converted Levothyroxine Sodium 137 Mcg Tablet, 137 MCG PO DAILY, (Reported) Last Action: Converted Metoprolol Succinate 100 Mg Tab.er.24h, 100 MG PO DAILY, (Reported) Last Action: Continued Multivit-Min/FA/Lycopene/Lut 1 Each Tablet, 1 EACH PO DAILY, (Reported) Last Action: Held Pantoprazole Sodium 40 Mg Tablet.dr, 40 MG PO 1600, (Reported) Last Action: Continued Past Vxbdyte-Nvynob-Hxqyni Hx Patient Social History Marrital Status: Employed/Student: retired Tobacco Use?: No Smoking Status: Never a Smoker Use of E-Cig and/or Vaping dev: No Substance use?: No Alcohol Use?: Yes Alcohol Frequency: Rarely Pt feels they are or have been: No Immunizations Up To Date Date of Influenza Vaccine: Jan 02, 2020 First/Initial COVID19 Vaccinat: February Second COVID19 Vaccination Braydon: May 26 Tetanus Booster (TDap): More Than 5 Years Hepatitis A: No Hepatitis B: Yes Seasonal Allergies Seasonal Allergies: No Current Status status: No Advance Directives: No Communicates: Verbally Primary Language: Somali Preferred Spoken Language: Somali Is interpretation needed?: No Sensory deficits: Vision impairment Implanted or Applied Medical D: Stents Past Medical History Surgeries: Coronary Stent (9-10 years ago), Hysterectomy (5 years ago 2016) Coronary Artery Disease, High Cholesterol, Hypertension Sexually Transmitted Disease: No Gastroesophageal Reflux, Diverticulosis Hypothyroidsim Blood Disorders: No Adverse Reaction/Blood Tranf: No Family Medical History Heart Disease, Cancer (Pt states mom w/ "some sort of female cancer"), CAD Over 55 Years Old Review of Systems Constitutional: No dizziness, No fever; weight loss (37 lbs since May) EENTM: No blurred vision, No double vision, No throat pain Respiratory: No cough, No short of breath, No wheezing Cardiovascular: No chest pain, No edema, No palpitations Gastrointestinal: LLQ (pain), constipation (but last bowel movement was 30min ago at 15:00); No diarrhea; nausea; No vomiting Genitourinary: No dysuria, No hematuria, No incontinence Musculoskeletal: No joint pain, No muscle pain, No muscle stiffness Skin: No change in color, No lesions, No rash Psychiatric/Neurological: Denies Numbness, Denies Tingling, Denies Tremors Physical Exam Vital Signs Vital Signs - First Documented 09/28/20 16:00 Temp 36.6 Pulse 90 Resp 18 B/P (MAP) 154/96 (115) Pulse Ox 95 O2 Delivery Room Air Capillary Refill : Height, Weight, BMI Height: 5'2.00" Weight: 177lbs. 0.0oz. [id number]; 31.36 BMI Method:Stated General Appearance: No Apparent Distress HEENT: Moist Mucous Membranes Neck: Full Range of Motion Respiratory: Lungs Clear, Normal Breath Sounds, No Respiratory Distress Cardiovascular: Regular Rate, Rhythm, No Edema Gastrointestinal: Normal Bowel Sounds, Non Tender (except on the L abd), Soft (except on L abd); No Guarding Extremity: Normal Capillary Refill, Other (R ring finger amputated at PIP) Neurologic/Psychiatric: Alert, Oriented x3, Normal Mood/Affect Skin: Normal Color, Warm/Dry; No Cyanosis; Other (Skin Turgor normal) Assessment/Plan Assessment and Plan Abdominal Pain Continue Aspirin/Acetaminophen for pain management Amylase/lipase ruled out pancreatitis Hypokalemia K Dur administered Follow up CMP for electrolyte levels in 24hr GERD Continue Protonix/Fomotidine CAD Continue Metoprolol SHIRLEY DEY DO 09/29/201: History of Present Illness History of Present Illness Reason for visit/HPI CC: Abdominal pain with weightloss and dehydration HPI: This is a 62yoWF clinic Pt of [employer] who I directly admitted from my [facility] yesterday due to profound dehydration on exam with abdominal pain, left lower quadrant, radiating to the left flank and 30lb weight loss in the last three months. Pt has not been keeping up with her fluids, Amylase and lipase were normal, CT scan showed chronic diverticulosis, no evidence of Diverticulitis. Dr. Cooney has been consulted, I have restarted home medications. Currently she is doing much better, will place a midline due to poor vascular access and continue with IV fluids since she is so profoundly dehydrated on exam. Allergies and Home Medications Allergies Coded Allergies: No Known Drug Allergies (Unverified , 09/28/20) Home Medications Acetaminophen 325 Mg Tablet, 325-650 MG PO Q6H PRN for PAIN-MILD (1-4), (Reported) Last Action: Continued Amlodipine Besylate 10 Mg Tablet, 10 MG PO DAILY, (Reported) Last Action: Held Aspirin 81 Mg Tablet., 81 MG PO HS, (Reported) Last Action: Continued Atorvastatin Calcium 40 Mg Tablet, 40 MG PO HS, (Reported) Last Action: Held Docusate Sodium 100 Mg Capsule, 100-200 MG PO BID PRN for CONSTIPATION-1ST LINE, (Reported) Last Action: Held Famotidine 40 Mg Tablet, 40 MG PO DAILY, (Reported) Last Action: Converted Levothyroxine Sodium 137 Mcg Tablet, 137 MCG PO DAILY, (Reported) Last Action: Converted Metoprolol Succinate 100 Mg Tab.er.24h, 100 MG PO DAILY, (Reported) Last Action: Continued Multivit-Min/FA/Lycopene/Lut 1 Each Tablet, 1 EACH PO DAILY, (Reported) Last Action: Held Pantoprazole Sodium 40 Mg Tablet.dr, 40 MG PO 1600, (Reported) Last Action: Continued Patient Home Medication List Home Medication List Reviewed: Yes Past Fcdovbk-Eopvij-Mvvyay Hx Patient Social History Marrital Status: Employed/Student: retired Smoking Status: Never a Smoker Substance use?: No Alcohol Use?: No Past Medical History Surgeries: Coronary Stent (9-10 years ago), Hysterectomy (5 years ago 2016) Coronary Artery Disease, High Cholesterol, Hypertension Blood Disorders: Yes Review of Systems Constitutional: see HPI, malaise, weakness, weight loss (37 lbs since May) Gastrointestinal: abdominal pain, loss of appetite Physical Exam General Appearance: No Apparent Distress, WD/WN, Chronically ill Eyes: Bilateral Eye Normal Inspection, Bilateral Eye PERRL, Bilateral Eye EOMI HEENT: PERRL/EOMI, Normal ENT Inspection, Pharynx Normal Neck: Full Range of Motion, Normal Inspection, Non Tender, Supple, Carotid Bruit Respiratory: Chest Non Tender, Lungs Clear, Normal Breath Sounds, No Accessory Muscle Use, No Respiratory Distress Cardiovascular: Regular Rate, Rhythm, No Edema, No Gallop, No JVD, No Murmur, Normal Peripheral Pulses Gastrointestinal: Normal Bowel Sounds, No Organomegaly, No Pulsatile Mass, Non Tender, Soft Back: Normal Inspection, No CVA Tenderness, No Vertebral Tenderness Extremity: Normal Capillary Refill, Normal Inspection, Normal Range of Motion, Non Tender, No Calf Tenderness, No Pedal Edema Neurologic/Psychiatric: Alert, Oriented x3, No Motor/Sensory Deficits, Normal Mood/Affect Skin: Normal Color, Warm/Dry Lymphatic: No Adenopathy Assessment/Plan Assessment and Plan Abdominal pain left lower quadrant to left flank consulting Dr. Cooney Profound dehydration 30 pound weight loss in 3 months Hiatal hernia Hypertension CAD History of iron deficiency Plan: Supportive care IV fluids Midline due to poor venous access Appreciate Dr. Cooney Problems: (1) Abdominal pain (2) CAD (coronary artery disease) Status: Chronic (3) Essential (primary) hypertension Status: Chronic (4) CKD (chronic kidney disease) stage 4, GFR 15-29 ml/min Admission Diagnosis Admission Status: Observation Supervisory-Addendum Brief Verification & Attestation Participated in pt care: history, MDM, physical Personally performed: exam, history, MDM, supervision of care Care discussed with: Medical Student Procedures: n/a Results interpretation: Verified all documentation Verification and Attestation of Medical Student E/M Service A medical student performed and documented this service in my presence. I reviewed and verified all information documented by the medical student and made modifications to such information, when appropriate. I personally performed the physical exam and medical decision making. Shirley Dey, Sep 29, 2020,21:32 DIXON SALAZAR Sep 29, 2020 15:00 SHIRLEY DEY DO Sep 29, 2020 21:31
[2020-09-29 16:28] VITALS: BP 114/70
[2020-09-29 19:28] VITALS: BP 134/67
[2020-09-29] MEDS: ENOXAPARIN 40 MG/0.4 ML (LOVENOX) SYR SC SCH (20:05)
[2020-09-29] MEDS ORDERED: ASPIRIN E.C. 81 MG (ECOTRIN) TAB PO SCH (21:00)
[2020-09-29 23:23] VITALS: BP 105/69
[2020-09-30] MEDS: NS IV 1000 ML 1,000 ML IV SCH ×2 (00:06→08:03)
[2020-09-30 04:04] VITALS: BP 114/71
[2020-09-30] MEDS ORDERED: LEVOTHYROXINE 112 MCG (LEVOTHROID) TAB PO SCH (06:30)
[2020-09-30] MEDS ORDERED: LEVOTHYROXINE 25 MCG (LEVOTHROID) TAB PO SCH (06:30)
[2020-09-30 06:35] LABS: BASOPHILS % (AUTO) 1 % (0-10); EOSINOPHILS # (AUTO) 0.2 10^3/uL (0.0-0.3); EOSINOPHILS % (AUTO) 3 % (0-10); HEMATOCRIT 34 % (35-52); HEMOGLOBIN 11.6 g/dL (11.5-16.0); LYMPHOCYTES # (AUTO) 3.3 10^3/uL (1.0-4.0); LYMPHOCYTES % (AUTO) 46 % (12-44); MEAN CORPUSCULAR HEMOGLOBIN 32 pg (25-34); MEAN CORPUSCULAR HGB CONC 34 g/dL (32-36); MEAN CORPUSCULAR VOLUME 92 fL (80-99); MEAN PLATELET VOLUME 10.4 fL (9.0-12.2); MONOCYTES # (AUTO) 0.8 10^3/uL (0.0-1.0); MONOCYTES % (AUTO) 11 % (0-12); NEUTROPHILS # (AUTO) 2.8 10^3/uL (1.8-7.8); NEUTROPHILS % (AUTO) 40 % (42-75); PLATELET COUNT 247 10^3/uL (130-400); WHITE BLOOD COUNT 7.2 10^3/uL (4.3-11.0)
[2020-09-30 06:46] LABS: ALBUMIN 2.9 GM/DL (3.2-4.5); POTASSIUM 3.2 MMOL/L (3.6-5.0)
[2020-09-30 06:47] LABS: CALCIUM 8.1 MG/DL (8.5-10.1)
[2020-09-30 06:50] LABS: BILIRUBIN,TOTAL 0.3 MG/DL (0.1-1.0)
[2020-09-30 06:52] LABS: CREATININE SERUM 0.64 MG/DL (0.60-1.30)
--- NOTE | 2020-09-30 07:55 | Progress Note - Surgery ---
JORJEJANETLEÓN 09/30/20 0755: Subjective Date Seen by a Provider: Sep 30, 2020 Time Seen by a Provider: 07:16 Subjective/Events-last exam Pt recovering well from dehydration and malnutrition She is OOB and in good spirits, looking forward to going home. Review of Systems General: No Chills, No Night Sweats, No Fatigue, No Malaise HEENT: No Head Aches, No Visual Changes Pulmonary: No Dyspnea, No Cough Cardiovascular: No: Chest Pain, Palpitations Gastrointestinal: Abdominal Pain (mild, but less than before); No: Nausea, Vomiting Genitourinary: No Dysuria, No Frequency, No Incontinence, No Hematuria, No Retention Musculoskeletal: No: other, neck pain, shoulder pain, arm pain, back pain, hand pain, leg pain, foot pain Neurological: No: Weakness, Numbness, Incoordination, Change in speech, Confusion, Seizures, Other Focused Exam Respiratory: Chest Non Tender, Lungs Clear, Normal Breath Sounds Cardiovascular: Regular Rate, Rhythm, No JVD, No Murmur, Normal Peripheral Pulses Peripheral Pulses: 2+ Radial Pulses (R), 2+ Radial Pulses (L) Objective Exam Vital Signs Date Time Temp Pulse Resp B/P (MAP) Pulse Ox O2 Delivery O2 Flow Rate FiO2 09/30/20 04:04 36.6 86 20 114/71 (85) 96 Room Air 09/29/20 23:23 36.2 89 18 105/69 (81) 95 Room Air 09/29/20 19:35 Room Air 09/29/20 19:28 36.4 107 18 134/67 (89) 95 Room Air 09/29/20 16:28 36.5 87 18 114/70 (85) 96 Room Air 09/29/20 11:40 36.5 92 20 139/69 (92) 97 Room Air 09/29/20 08:05 36.4 82 22 123/68 (86) 98 Room Air 09/29/20 08:00 98 Room Air I & O 09/30/20 07:00 Intake Total 3100 ml Output Total 2650 ml Balance 450 ml Capillary Refill : General Appearance: No Apparent Distress, WD/WN HEENT: Pharynx Normal Neck: Non Tender, Supple Respiratory: Chest Non Tender, Lungs Clear, Normal Breath Sounds, No Accessory Muscle Use, No Respiratory Distress Cardiovascular: Regular Rate, Rhythm, No Gallop, No Murmur, Normal Peripheral Pulses Peripheral Pulses: 2+ Radial Pulses (R), 2+ Radial Pulses (L) Gastrointestinal: soft, guarding (voluntary on left side), tenderness; No hernia Neurologic/Psychiatric: Alert, Oriented x3, Normal Mood/Affect Skin: Normal Color, Warm/Dry Results Lab Laboratory Tests 09/30/20 06:02: White Blood Count 7.2, Red Blood Count 3.67L, Hemoglobin 11.6, Hematocrit 34L, Mean Corpuscular Volume 92, Mean Corpuscular Hemoglobin 32, Mean Corpuscular Hemoglobin Concent 34, Red Cell Distribution Width 11.7, Platelet Count 247, Mean Platelet Volume 10.4, Immature Granulocyte % (Auto) 0, Neutrophils (%) (Auto) 40L, Lymphocytes (%) (Auto) 46H, Monocytes (%) (Auto) 11, Eosinophils (%) (Auto) 3, Basophils (%) (Auto) 1, Neutrophils # (Auto) 2.8, Lymphocytes # (Auto) 3.3, Monocytes # (Auto) 0.8, Eosinophils # (Auto) 0.2, Basophils # (Auto) 0.0, Immature Granulocyte # (Auto) 0.0, Sodium Level 143, Potassium Level 3.2L, Chloride Level 111H, Carbon Dioxide Level 22, Anion Gap 10, Blood Urea Nitrogen 4L, Creatinine 0.64, Estimat Glomerular Filtration Rate 92, BUN/Creatinine Ratio 6, Glucose Level 82, Calcium Level 8.1L, Corrected Calcium 9.0, Total Bilirubin 0.3, Aspartate Amino Transf (AST/SGOT) 19, Alanine Aminotransferase (ALT/SGPT) 14, Alkaline Phosphatase 58, Total Protein 6.0L, Albumin 2.9L Assessment/Plan Assessment/Plan Assessment/Plan Left sided Abd pain - improved Hypokalemia CAD Hx of GERD Hiatal hernia Labs were basically normal, WBC not elevated and CT did not show any acute inflammation or process. Pt does not need surgical intervention at this time. Her main complaint is that she doesn't have appetite, food doesn't taste good and she has lost 33 lbs in past few months. I will see her in my office. LUQ/LLQ abdominal pain 2/2 chronic diverticulitis Plan - maintain adequate hydration and nutrition LUCILLE COONEY DO 09/30/20 4545: Subjective Time Seen by a Provider: 09:36 Subjective/Events-last exam Pt seen and examined, states her pain is better today. She is tolerating more of her diet. Review of Systems General: No Chills, No Night Sweats; Fatigue Pulmonary: No Dyspnea, No Cough Cardiovascular: No: Chest Pain, Palpitations Gastrointestinal: Abdominal Pain (mild and less than yesterday); No: Nausea, Vomiting Objective Exam General Appearance: No Apparent Distress, WD/WN Respiratory: Chest Non Tender, Lungs Clear, Normal Breath Sounds, No Accessory Muscle Use, No Respiratory Distress Cardiovascular: Regular Rate, Rhythm, No Murmur Gastrointestinal: soft, no organomegaly, tenderness (very mild left side) Assessment/Plan Assessment/Plan Assessment/Plan Left sided Abd pain - improved, doubt this is due to Diverticulitis Hypokalemia CAD Hx of GERD Hiatal hernia Labs were basically normal, WBC not elevated and CT did not show any acute inflammation or process. Pt does not need surgical intervention at this time. Her main complaint is that she doesn't have appetite, food doesn't taste good and she has lost 33 lbs in past few months. I will see her in my office. Supervisory-Addendum Brief Verification & Attestation Participated in pt care: history, MDM, physical Personally performed: exam, history, MDM, supervision of care Care discussed with: Medical Student Procedures: n/a Verification and Attestation of Medical Student E/M Service A medical student performed and documented this service. I then reviewed and verified all information documented by the medical student and made modifications to such information, when appropriate. I personally performed a physical exam, medical decision making and then discussed any differences between the notes and made revisions as necessary to create one note. Lucille Cooney , 09/30/20 , 09:44 LEÓN GONZALEZ Sep 30, 2020 07:55 LUCILLE COONEY DO Sep 30, 2020 09:45
[2020-09-30 08:03] VITALS: BP 121/69
[2020-09-30] MEDS: SENNA W/DOCUSATE (SENOKOT S) TABLET PO SCH (08:04)
[2020-09-30] MEDS: polyethylene glycoL POWDER 17 GM (MIRALAX) PACK PO SCH (08:04)
[2020-09-30] MEDS ORDERED: FAMOTIDINE 20 MG (PEPCID) TABLET PO SCH (09:00)
[2020-09-30] MEDS ORDERED: meTOprolol SUCCINATE 100 MG (TOPROL XL) TAB PO SCH (09:00)
[2020-09-30] MEDS ORDERED: POTA10TA36 PO (11:34)
--- NOTE | 2020-09-30 11:35 | Discharge Summary ---
Diagnosis/Chief Complaint Date of Admission Sep 28, 2020 at 15:24 Date of Discharge Discharge Date: Sep 30, 2020 Discharge Diagnosis Abdominal pain left lower quadrant to left flank consulting Dr. Cooney Profound dehydration 30 pound weight loss in 3 months Hiatal hernia Hypertension CAD History of iron deficiency Plan: Supportive care IV fluids Midline due to poor venous access Appreciate Dr. Cooney Reason Hospital Visit CC: Abdominal pain with weightloss and dehydration HPI: This is a 62[facility]WF clinic Pt of mine who I directly admitted from my [facility] yesterday due to profound dehydration on exam with abdominal pain, left lower quadrant, radiating to the left flank and 30lb weight loss in the last three months. Pt has not been keeping up with her fluids, Amylase and lipase were normal, CT scan showed chronic diverticulosis, no evidence of Diverticulitis. Dr. Cooney has been consulted, I have restarted home medications. Currently she is doing much better, will place a midline due to poor vascular access and continue with IV fluids since she is so profoundly dehydrated on exam. Discharge Summary Discharge Physical Examination Allergies: Coded Allergies: No Known Drug Allergies (Unverified , 09/28/20) Vitals & I&Os Vital Signs Date Time Temp Pulse Resp B/P (MAP) Pulse Ox O2 Delivery O2 Flow Rate FiO2 09/30/20 14:49 36.4 92 20 137/74 96 Room Air General Appearance: Alert, Oriented X3, Cooperative Respiratory: Clear to Auscultation Cardiovascular: Regular Rate Neuro: Normal Gait, Normal Speech, Strength at 5/5 X4 Ext Hospital Course Was the Problem List Reviewed?: Yes Hospital Course: Pt had an uneventful hospital course. She was admitted for profound dehydration and abdominal pain. CT Scan did not show anything acute and Dr. Cooney was consulted and agreed with the CT scan. She was found to be profoundly dehydrated and overall much improved by the time she was discharged. She was supplemented on potassium and she will have labs done and I will see her next Sunday. Labs (last 24 hrs) Laboratory Tests 09/28/20 19:30: White Blood Count 8.1, Red Blood Count 4.34, Hemoglobin 13.5, Hematocrit 39, Mean Corpuscular Volume 90, Mean Corpuscular Hemoglobin 31, Mean Corpuscular Hemoglobin Concent 34, Red Cell Distribution Width 11.2, Platelet Count 284, Mean Platelet Volume 9.7, Immature Granulocyte % (Auto) 1, Neutrophils (%) (Auto) 62, Lymphocytes (%) (Auto) 29, Monocytes (%) (Auto) 8, Eosinophils (%) (Auto) 1, Basophils (%) (Auto) 1, Neutrophils # (Auto) 5.0, Lymphocytes # (Auto) 2.3, Monocytes # (Auto) 0.6, Eosinophils # (Auto) 0.0, Basophils # (Auto) 0.1, Immature Granulocyte # (Auto) 0.0, Erythrocyte Sedimentation Rate 41H, Sodium Level 135, Potassium Level 2.8L, Chloride Level 99, Carbon Dioxide Level 24, Anion Gap 12, Blood Urea Nitrogen 13, Creatinine 0.94, Estimat Glomerular Filtration Rate 59, BUN/Creatinine Ratio 14, Glucose Level 171H, Calcium Level 8.5, Corrected Calcium 9.1, Magnesium Level 1.2L, Total Bilirubin 0.3, Aspartate Amino Transf (AST/SGOT) 21, Alanine Aminotransferase (ALT/SGPT) 19, Alkaline Phosphatase 65, C-Reactive Protein High Sensitivity 1.72H, Total Protein 7.2, Albumin 3.3, Amylase Level 84, Lipase 34 09/28/20 20:20: Urine Color YELLOW, Urine Clarity CLEAR, Urine pH 6.0, Urine Specific [place] <=1.005, Urine Protein NEGATIVE, Urine Glucose (UA) NEGATIVE, Urine Ketones TRACEH, Urine Nitrite NEGATIVE, Urine Bilirubin NEGATIVE, Urine Urobilinogen 0.2, Urine Leukocyte Esterase NEGATIVE, Urine RBC (Auto) NEGATIVE, Urine RBC NONE, Urine WBC NONE, Urine Squamous Epithelial Cells 0-2, Urine Crystals NONE, Urine Bacteria TRACE, Urine Casts PRESENT, Urine Hyaline Casts 0-2H, Urine Mucus NEGATIVE, Urine Culture Indicated NO 09/29/20 06:00: White Blood Count 8.8, Red Blood Count 4.45, Hemoglobin 13.9, Hematocrit 40, Mean Corpuscular Volume 90, Mean Corpuscular Hemoglobin 31, Mean Corpuscular Hemoglobin Concent 35, Red Cell Distribution Width 11.4, Platelet Count 334, Mean Platelet Volume 9.9, Immature Granulocyte % (Auto) 1, Neutrophils (%) (Auto) 49, Lymphocytes (%) (Auto) 38, Monocytes (%) (Auto) 10, Eosinophils (%) (Auto) 1, Basophils (%) (Auto) 1, Neutrophils # (Auto) 4.3, Lymphocytes # (Auto) 3.3, Monocytes # (Auto) 0.9, Eosinophils # (Auto) 0.1, Basophils # (Auto) 0.1, Immature Granulocyte # (Auto) 0.1, Sodium Level 135, Potassium Level 3.2L, Chloride Level 101, Carbon Dioxide Level 22, Anion Gap 12, Blood Urea Nitrogen 10, Creatinine 0.79, Estimat Glomerular Filtration Rate 72, BUN/Creatinine Ratio 13, Glucose Level 106H, Calcium Level 9.1, Corrected Calcium 9.5, Magnesium Level 2.4, Total Bilirubin 0.3, Aspartate Amino Transf (AST/SGOT) 22, Alanine Aminotransferase (ALT/SGPT) 20, Alkaline Phosphatase 68, Total Protein 7.4, Albumin 3.5 09/30/20 06:02: White Blood Count 7.2, Red Blood Count 3.67L, Hemoglobin 11.6, Hematocrit 34L, Mean Corpuscular Volume 92, Mean Corpuscular Hemoglobin 32, Mean Corpuscular Hemoglobin Concent 34, Red Cell Distribution Width 11.7, Platelet Count 247, Mean Platelet Volume 10.4, Immature Granulocyte % (Auto) 0, Neutrophils (%) (Auto) 40L, Lymphocytes (%) (Auto) 46H, Monocytes (%) (Auto) 11, Eosinophils (%) (Auto) 3, Basophils (%) (Auto) 1, Neutrophils # (Auto) 2.8, Lymphocytes # (Auto) 3.3, Monocytes # (Auto) 0.8, Eosinophils # (Auto) 0.2, Basophils # (Auto) 0.0, Immature Granulocyte # (Auto) 0.0, Sodium Level 143, Potassium Level 3.2L, Chloride Level 111H, Carbon Dioxide Level 22, Anion Gap 10, Blood Urea Nitrogen 4L, Creatinine 0.64, Estimat Glomerular Filtration Rate 92, BUN/Creatinine Ratio 6, Glucose Level 82, Calcium Level 8.1L, Corrected Calcium 9.0, Total Bilirubin 0.3, Aspartate Amino Transf (AST/SGOT) 19, Alanine Aminotransferase (ALT/SGPT) 14, Alkaline Phosphatase 58, Total Protein 6.0L, Albumin 2.9L Pending Labs Laboratory Tests 09/28/20 19:30: White Blood Count 8.1, Red Blood Count 4.34, Hemoglobin 13.5, Hematocrit 39, Mean Corpuscular Volume 90, Mean Corpuscular Hemoglobin 31, Mean Corpuscular Hemoglobin Concent 34, Red Cell Distribution Width 11.2, Platelet Count 284, Mean Platelet Volume 9.7, Immature Granulocyte % (Auto) 1, Neutrophils (%) (Auto) 62, Lymphocytes (%) (Auto) 29, Monocytes (%) (Auto) 8, Eosinophils (%) (Auto) 1, Basophils (%) (Auto) 1, Neutrophils # (Auto) 5.0, Lymphocytes # (Auto) 2.3, Monocytes # (Auto) 0.6, Eosinophils # (Auto) 0.0, Basophils # (Auto) 0.1, Immature Granulocyte # (Auto) 0.0, Erythrocyte Sedimentation Rate 41, Sodium Level 135, Potassium Level 2.8, Chloride Level 99, Carbon Dioxide Level 24, Anion Gap 12, Blood Urea Nitrogen 13, Creatinine 0.94, Estimat Glomerular Filtration Rate 59, BUN/Creatinine Ratio 14, Glucose Level 171, Calcium Level 8.5, Corrected Calcium 9.1, Magnesium Level 1.2, Total Bilirubin 0.3, Aspartate Amino Transf (AST/SGOT) 21, Alanine Aminotransferase (ALT/SGPT) 19, Alkaline Phosphatase 65, C-Reactive Protein High Sensitivity 1.72, Total Protein 7.2, Albumin 3.3, Amylase Level 84, Lipase 34 09/28/20 20:20: Urine Color YELLOW, Urine Clarity CLEAR, Urine pH 6.0, Urine Specific [place] <=1.005, Urine Protein NEGATIVE, Urine Glucose (UA) NEGATIVE, Urine Ketones TRACE, Urine Nitrite NEGATIVE, Urine Bilirubin NEGATIVE, Urine Urobilinogen 0.2, Urine Leukocyte Esterase NEGATIVE, Urine RBC (Auto) NEGATIVE, Urine RBC NONE, Urine WBC NONE, Urine Squamous Epithelial Cells 0-2, Urine Crystals NONE, Urine Bacteria TRACE, Urine Casts PRESENT, Urine Hyaline Casts 0-2, Urine Mucus NEGATIVE, Urine Culture Indicated NO 09/29/20 06:00: White Blood Count 8.8, Red Blood Count 4.45, Hemoglobin 13.9, Hematocrit 40, Mean Corpuscular Volume 90, Mean Corpuscular Hemoglobin 31, Mean Corpuscular Hemoglobin Concent 35, Red Cell Distribution Width 11.4, Platelet Count 334, Mean Platelet Volume 9.9, Immature Granulocyte % (Auto) 1, Neutrophils (%) (Auto) 49, Lymphocytes (%) (Auto) 38, Monocytes (%) (Auto) 10, Eosinophils (%) (Auto) 1, Basophils (%) (Auto) 1, Neutrophils # (Auto) 4.3, Lymphocytes # (Auto) 3.3, Monocytes # (Auto) 0.9, Eosinophils # (Auto) 0.1, Basophils # (Auto) 0.1, Immature Granulocyte # (Auto) 0.1, Sodium Level 135, Potassium Level 3.2, Chloride Level 101, Carbon Dioxide Level 22, Anion Gap 12, Blood Urea Nitrogen 10, Creatinine 0.79, Estimat Glomerular Filtration Rate 72, BUN/Creatinine Ratio 13, Glucose Level 106, Calcium Level 9.1, Corrected Calcium 9.5, Magnesium Level 2.4, Total Bilirubin 0.3, Aspartate Amino Transf (AST/SGOT) 22, Alanine Aminotransferase (ALT/SGPT) 20, Alkaline Phosphatase 68, Total Protein 7.4, Albumin 3.5 09/30/20 06:02: White Blood Count 7.2, Red Blood Count 3.67, Hemoglobin 11.6, Hematocrit 34, Mean Corpuscular Volume 92, Mean Corpuscular Hemoglobin 32, Mean Corpuscular Hemoglobin Concent 34, Red Cell Distribution Width 11.7, Platelet Count 247, Mean Platelet Volume 10.4, Immature Granulocyte % (Auto) 0, Neutrophils (%) (Auto) 40, Lymphocytes (%) (Auto) 46, Monocytes (%) (Auto) 11, Eosinophils (%) (Auto) 3, Basophils (%) (Auto) 1, Neutrophils # (Auto) 2.8, Lymphocytes # (Auto) 3.3, Monocytes # (Auto) 0.8, Eosinophils # (Auto) 0.2, Basophils # (Auto) 0.0, Immature Granulocyte # (Auto) 0.0, Sodium Level 143, Potassium Level 3.2, Chloride Level 111, Carbon Dioxide Level 22, Anion Gap 10, Blood Urea Nitrogen 4, Creatinine 0.64, Estimat Glomerular Filtration Rate 92, BUN/Creatinine Ratio 6, Glucose Level 82, Calcium Level 8.1, Corrected Calcium 9.0, Total Bilirubin 0.3, Aspartate Amino Transf (AST/SGOT) 19, Alanine Aminotransferase (ALT/SGPT) 14, Alkaline Phosphatase 58, Total Protein 6.0, Albumin 2.9 Discharge Home Medications: Active Scripts Active Potassium Chloride 10 Meq Tab.er.prt 10 Meq PO DAILY Reported Docusate Sodium 100 Mg Capsule 100-200 Mg PO BID PRN Atorvastatin Calcium 40 Mg Tablet 40 Mg PO HS Famotidine 40 Mg Tablet 40 Mg PO DAILY Pantoprazole Sodium 40 Mg Tablet.dr 40 Mg PO 1600 Aspirin EC (Aspirin) 81 Mg Tablet.dr 81 Mg PO HS Metoprolol Succinate 100 Mg Tab.er.24h 100 Mg PO DAILY Euthyrox (Levothyroxine Sodium) 137 Mcg Tablet 137 Mcg PO DAILY Amlodipine Besylate 10 Mg Tablet 10 Mg PO DAILY Centrum Silver Tablet (Multivit-Min/FA/Lycopene/Lut) 1 Each Tablet 1 Each PO DAILY Tylenol (Acetaminophen) 325 Mg Tablet 325-650 Mg PO Q6H PRN Instructions to patient/family Please see electronic discharge instructions given to patient. Diagnosis/Problems Diagnosis/Problems (1) Abdominal pain (2) CAD (coronary artery disease) Status: Chronic (3) Essential (primary) hypertension Status: Chronic (4) CKD (chronic kidney disease) stage 4, GFR 15-29 ml/min JESSICA DEY DO Sep 30, 2020 11:35
[2020-09-30] MEDS ORDERED: amLODIPine 5 MG (NORVASC) TAB PO ONE (11:45)
[2020-09-30 11:59] VITALS: BP 137/74
[2020-09-30 14:49] VITALS: BP 137/74
[2020-09-30] MEDS ORDERED: PANTOPRAZOLE 40 MG (PROTONIX) TAB PO SCH (16:00)
--- NOTE | 2020-09-30 16:04 | Progress Note ---
DIXON SALAZAR 09/30/20 1604: Progress Note 70 yo F admitting to hospital for observation from Dr. Cristobal[facility] [place] [facility] due to L abd pain with weight loss (30lbs since May) and severe dehydration. IV fluids started. Labs significantly improved over the course of stay. Consult w/ Dr. Cooney with CT findings of chronic diverticular disease of the sigmoid colon without acute bowel inflammation seen. Discharged with the addition of a potassium supplement. SHIRLEY CRISTOBAL DO 10/01/20 0708: Supervisory-Addendum Brief Verification & Attestation Participated in pt care: history, MDM, physical Personally performed: exam, history, MDM, supervision of care Care discussed with: Medical Student Procedures: n/a Results interpretation: Verified all documentation Verification and Attestation of Medical Student E/M Service A medical student performed and documented this service in my presence. I reviewed and verified all information documented by the medical student and made modifications to such information, when appropriate. I personally performed the physical exam and medical decision making. Shirley Cristobal, Oct 01, 2020,07:08 DIXON SALAZAR Sep 30, 2020 16:04 SHIRLEY CRISTOBAL DO Oct 01, 2020 07:08
== END 2020-09-30 11:33 | disposition other institution (70) ==
LOC: UNDOADMOB 15:24 → 4TH 15:24 → UNDODISOB 09-30 14:52
PROVIDERS: ADMIT Internal Medicine; ATTEND Internal Medicine
DX: R10.32 Left lower quadrant pain (principal); E86.0 Dehydration; R63.4 Abnormal weight loss; K44.9 Diaphragmatic hernia without obstruction or gangrene; I10 Essential (primary) hypertension; I25.10 Atherosclerotic heart disease of native coronary artery without angina pectoris; E61.1 Iron deficiency; K21.9 Gastro-esophageal reflux disease without esophagitis; E03.9 Hypothyroidism, unspecified; Z79.82 Long term (current) use of aspirin; Z79.890 Hormone replacement therapy; Z79.899 Other long term (current) drug therapy; Z90.710 Acquired absence of both cervix and uterus
CPT/HCPCS: 74022; 74177; 80053 ×3; 81000; 82150; 83690; 83735 ×2; 85025 ×3; 85652; 86141; G0378; G0379; 36415; 99211

== ENCOUNTER 2020-12-06 11:03 | Outpatient (RCR) | payer MEDICARE, OTHER ==
[~2020-12-06 11:03] MED LIST changes: +ASPI-1238 PO; +ATOR40TA70 PO; +DOCU100C37 PO; +FAMO40TA6 PO; +PANT40TA52 PO; +POTA10TA37 PO
== END 2021-02-25 | disposition home or self-care (01) ==
LOC: ONC 11:03
PROVIDERS: ATTEND Internal Medicine Hematology & Oncology
DX: D50.0 Iron deficiency anemia secondary to blood loss (chronic) (principal); D72.820 Lymphocytosis (symptomatic); I25.10 Atherosclerotic heart disease of native coronary artery without angina pectoris; I10 Essential (primary) hypertension; E78.5 Hyperlipidemia, unspecified; Z98.1 Arthrodesis status; Z98.890 Other specified postprocedural states
CPT/HCPCS: 99213

== ENCOUNTER → 2021-07-06 | Outpatient (CLI) | payer MEDICARE, OTHER ==
--- NOTE | 2021-07-06 14:52 | Diagnostic Imaging Report ---
3-D mammogram, bilateral screening with CAD. This study was compared to the prior exams of 11/04/2019 and 08/24/2017. At this time there are no current complaints. The current study was also evaluated with a Computer Aided Detection (CAD) system. FINDINGS: There are scattered fibroglandular densities in both breasts which could obscure a lesion. Overall, there does not appear to have been any significant change when compared to the prior exam. No primary or secondary sign of malignancy is noted. IMPRESSION: 1. There is no radiographic evidence for malignancy 2. The patient should have her annual bilateral screening mammogram on schedule in June 2022. ACR category 1 ACR BI-RADS Category 1: Negative. Result letter will be mailed to the patient. Note: At least 10% of breast cancer is not imaged by mammography. Dictated by: Dictated on workstation # [id number]
== END ==
LOC: RAD 10:45
PROVIDERS: ATTEND Internal Medicine
DX: Z12.31 Encounter for screening mammogram for malignant neoplasm of breast (principal)
CPT/HCPCS: 77063; 77067